=== PATIENT | female | born 1960 | race Caucasian/White ===

== ENCOUNTER → 2021-03-07 | Outpatient (CLI) | payer OTHER ==
[2021-03-07 10:54] VITALS: BP 145/78; PULSE 74; RESP 18; TEMP 98
--- NOTE | 2021-03-07 11:06 | P.GSHP ---
History of Present Illness H&P Date: 03/07/21 Chief Complaint: abnormal breast imaging Susan is a 61 year old white female seen in consultation for Karey Starkey regarding the radiographic abnormality in her left breast. She underwent a bilateral screening mammogram on which revealed a new focal asymmetric area in the upper left breast. Stable right breast. She then underwent an ultrasound of the left breast which revealed at the 2 o'clock position a tolerated and wide 2.8 x 0.5 cm lesion correlating with a mammographic finding. The patient denied any lumps masses or nodules of concern in either breast. She does not complain of any nipple discharge. She has not had any breast biopsy in the past. Caffiene: 1 cup/jailene nicotine: 1 1/2 PPD for 30 years chocolate: occasional Note reviewed from Karey Starkey 01-29-21 Family History: sister: Esophageal cancer Maternal aunt: breast cancer Hormonal History: menarche: 11 [id number] menopause: 49 Surgical history: none Medical History: anxiety/depression hypothyroid high cholesterol Social history: Smoking: One and half packs per day for 30 years Alcohol: Negative drugs: Marijuana daily/ for anxiety - Constitutional Constitutional: Denies chills, Denies fever - EENT Eyes: denies blurred vision, denies pain Ears: deny: decreased hearing, tinnitus Ears, nose, mouth and throat: Denies headache, Denies sore throat - Breasts Breasts: bilateral: as per HPI - Cardiovascular Cardiovascular: Denies chest pain, Denies shortness of breath - Respiratory Respiratory: Denies cough, Denies 7 - Gastrointestinal Gastrointestinal: Denies abdominal pain, Denies diarrhea, Denies nausea, Denies vomiting - Genitourinary (Female) Genitourinary: Denies dysuria, Denies hematuria - Menstruation Menstruation: Reports postmenopausal - Musculoskeletal Musculoskeletal: Reports myalgias - Integumentary Integumentary: Denies pruritus, Denies rash - Neurological Neurological: Denies numbness, Denies weakness - Psychiatric Psychiatric: Reports anxiety, Reports depression - Endocrine Comment: hypothyroid - Hematologic/Lymphatic Comment: none - Allergic/Immunologic Allergic/Immunologic: Reports as per HPI Surgical - Exam BMI 28 - General no distress - Eyes normal ocular movement - Neck trachea midline - Respiratory normal respiratory effort, clear to auscultation - Cardiovascular Rhythm: regular Heart Sounds: normal: S1, S2 - Abdomen Abdomen: soft - Integumentary normal turgor - Neurologic no disoriented, no combative - Musculoskeletal normal gait, normal posture - Psychiatric oriented to time, oriented to person, oriented to place, speech is normal, memory intact Breast Exam: Bra: 36C Inspection: bilateral grade 3 ptosis Palpation: Right breast: Multi-positional exam fibrocystic changes no dominant masses or nodules of concern slightly larger than left breast Right axilla: No adenopathy of concern left breast: Multiple positional exam fibrocystic changes slight fullness upper- outer quadrant no discrete dominant mass or nodule Left axilla: No adenopathy of concern Results Mammogram and ultrasound results reviewed Assessment and Plan Assessment: Impression: Ultrasound abnormality left breast 2 o'clock position Anxiety/depression Hypothyroid High cholesterol Plan: Radiographs to be reviewed with radiology/most likely ultrasound core biopsy of the lesion in the left breast Follow up after ultrasound core biopsy CC: Karey Starkey
== END ==
LOC: WWCWWP 10:36
PROVIDERS: ATTEND Surgery
DX: R92.8 Other abnormal and inconclusive findings on diagnostic imaging of breast (principal); F41.9 Anxiety disorder, unspecified; F32.A Depression, unspecified; E03.9 Hypothyroidism, unspecified; E78.00 Pure hypercholesterolemia, unspecified; F17.210 Nicotine dependence, cigarettes, uncomplicated

== ENCOUNTER → 2021-04-02 | Day surgery (SDC) | payer OTHER ==
[2021-04-02 12:18] VITALS: RESP 16; TEMP 98
[2021-04-02 13:32] VITALS: BP 129/80; PULSE 60
--- NOTE | 2021-04-02 13:44 | USB ---
EXAMINATION TYPE: US biopsy breast VAD LT DATE OF EXAM: 04/02/2021 CLINICAL HISTORY: R92.8 ABN MAMMO. TECHNIQUE: Ultrasound guided core biopsy of left breast. COMPARISON: 01/03/2020, 01/06/2021 FINDINGS: The procedure of ultrasound guided core biopsy was explained to the patient. Benefits, alternatives, and risks were discussed. An informed consent was then obtained. The patient was placed in supine positioning for imaging and for the procedure. The overlying skin was prepped and draped in usual sterile fashion. Lidocaine buffered with bicarbonate was used as anesthetic into the skin and subcutaneous tissue up to area of concern in the left breast. A hedy was made with surgical scalpel. Under ultrasound guidance, a 12-gauge vacuum assisted biopsy gun device was used to obtain 5 core samples. Following this, a biopsy clip was left in lesion. The patient tolerated the procedure well without any immediate complication. The patient was kept in the radiology department for short stay after the procedure and then discharged home in stable condition. IMPRESSION: Successful, uncomplicated ultrasound guided core biopsy of area of concern in the left breast, full pathology results to follow. Pathology Results: Malignant LEFT BREAST, TWO O'CLOCK, ULTRASOUND GUIDED CORE BIOPSY: Invasive well differentiated ductal carcinoma (Grade 1) with associated calcifications. See Surgical Pathology Cancer Case Summary. Recommendation Surgical consult of the left breast. TAMMIE
--- NOTE | 2021-04-02 14:50 | MM ---
Reason for exam: additional evaluation requested from abnormal screening. History: Patient is postmenopausal and is nulliparous. Family history of breast cancer in maternal aunt. Took hormonal contraceptives for 8 years. MG Diagnostic Mammo LT Wo CAD CC and LM view(s) were taken of the left breast. ASSESSMENT: Post procedure mammogram for marker placement RECOMMENDATION: Ultrasound of the left breast in 6 months. PENDING PATHOLOGY RESULTS.
== END | disposition home or self-care (01) ==
LOC: RADUSWWP 11:59
PROVIDERS: ATTEND Surgery
DX: C50.912 Malignant neoplasm of unspecified site of left female breast (principal); Z17.0 Estrogen receptor positive status [ER+]
CPT/HCPCS: 88305; 88342; 88341; 77065; 19083; A4648; J2001

== ENCOUNTER → 2021-04-04 | Outpatient (CLI) | payer OTHER ==
[2021-04-04 15:29] VITALS: BP 146/84; PULSE 68; RESP 18; TEMP 97.7
--- NOTE | 2021-04-04 15:47 | P.PN ---
Subjective Progress Note Date: 04/04/21 Principal diagnosis: lefy breast invasive ductal cancer Susan is a 61 year old white female seen in consultation for Karey Starkey regarding the radiographic abnormality in her left breast. She underwent a bilateral screening mammogram on which revealed a new focal asymmetric area in the upper left breast. Stable right breast. She then underwent an ultrasound of the left breast which revealed at the 2 o'clock position a tolerated and wide 2.8 x 0.5 cm lesion correlating with a mammographic finding. The patient denied any lumps masses or nodules of concern in either breast. She does not complain of any nipple discharge. She has not had any breast biopsy in the past. She had an ultrasound core biopsy on 04-02-21 which was positive for invasive ductal carcinoma grade 1. Receptor status is pending. This is a T1 N0 M0 G1 invasive ductal carcinoma. It is most likely a stage IA or stage IB. Caffiene: 1 cup/day nicotine: 1 1/2 PPD for 30 years chocolate: occasional Note reviewed from Karey Starkey 01-29-21 Family History: sister: Esophageal cancer Maternal aunt: breast cancer Hormonal History: menarche: 11 [id number] menopause: 49 Surgical history: none Medical History: anxiety/depression hypothyroid high cholesterol Social history: Smoking: One and half packs per day for 30 years Alcohol: Negative drugs: Marijuana daily/ for anxiety - Constitutional Constitutional: Denies chills, Denies fever - EENT Eyes: denies blurred vision, denies pain Ears: deny: decreased hearing, tinnitus Ears, nose, mouth and throat: Denies headache, Denies sore throat - Breasts Breasts: bilateral: as per HPI - Cardiovascular Cardiovascular: Denies chest pain, Denies shortness of breath - Respiratory Respiratory: Denies cough, Denies 7 - Gastrointestinal Gastrointestinal: Denies abdominal pain, Denies diarrhea, Denies nausea, Denies vomiting - Genitourinary (Female) Genitourinary: Denies dysuria, Denies hematuria - Menstruation Menstruation: Reports postmenopausal - Musculoskeletal Musculoskeletal: Reports myalgias - Integumentary Integumentary: Denies pruritus, Denies rash - Neurological Neurological: Denies numbness, Denies weakness - Psychiatric Psychiatric: Reports anxiety, Reports depression - Endocrine Comment: hypothyroid - Hematologic/Lymphatic Comment: none - Allergic/Immunologic Allergic/Immunologic: Reports as per HPI Objective - Vital Signs Vital signs: Vital Signs Temp 97.7 F 04/04/21 14:58 Pulse 68 04/04/21 14:58 Resp 18 04/04/21 14:58 BP 146/84 04/04/21 14:58 Pulse Ox 98 04/04/21 14:58 Intake & Output 04/03/21 04/04/21 04/04/21 18:59 06:59 18:59 Weight 67.132 kg - Exam BMI 28 - Constitutional General appearance: Present: cooperative - EENT Eyes: Present: EOMI ENT: Present: hearing grossly normal - Neck Neck: Present: normal ROM - Integumentary Integumentary Comment(s): biopsy site left breast clean without evidence of infection - Musculoskeletal Musculoskeletal: Present: gait normal - Psychiatric Psychiatric: Present: A&O x's 3, appropriate affect, intact judgment & insight Assessment and Plan Assessment: Impression: Stage IA or 1B left breast invasive ductal carcinoma Plan: 1. Presentation of case at tumor board 2. Probable left breast needle localization lumpectomy, possible mastopexy, possible optical plastic tissue transfer, sentinel node injection, sentinel node biopsy possible axillary node dissection 3. Medical clearance from Jorgito grayson and 4. Patient is encouraged to stop smoking prior to the surgery Risks and benefits of the procedure discussed with the patient. Risk of the lumpectomy include but are not limited to bleeding, infection, reaction to the anesthetic. If margins were positive and further resection may be necessary. The scope was sentinel node biopsy include bleeding, infection, reaction to the anesthetic. If the sentinel node were noted to be positive on frozen section are clinically highly suspicious for Node dissection would be performed. Risk also included possibility of lymphedema, numbness to the inner arm, or injury to the thoracodorsal and long thoracic nerves. The patient understands as well as her significant other. Her sister was here with her as well. Surgery will be scheduled in the near future. CC: Radha Starkey
== END ==
LOC: WWCWWP 14:36
PROVIDERS: ATTEND Surgery
DX: C50.912 Malignant neoplasm of unspecified site of left female breast (principal); F41.9 Anxiety disorder, unspecified; F32.A Depression, unspecified; E03.9 Hypothyroidism, unspecified; E78.00 Pure hypercholesterolemia, unspecified; Z79.890 Hormone replacement therapy; Z79.899 Other long term (current) drug therapy

== ENCOUNTER → 2021-05-16 | Outpatient (CLI) | payer OTHER ==
[2021-05-16 13:05] VITALS: BP 128/79; PULSE 65; RESP 18; TEMP 98
--- NOTE | 2021-05-16 13:33 | P.PN ---
Subjective Progress Note Date: 05/16/21 Principal diagnosis: left breast invasive ductal carcinoma; [id number]+Her2-G1; stage I left breast invasive ductal cancer Susan is a 61 year old white female seen in consultation for Karey Starkey regarding a radiographic abnormality in her left breast. She underwent a bilateral screening mammogram on which revealed a new focal asymmetric area in the upper left breast. Stable right breast. She then underwent an ultrasound of the left breast which revealed at the 2 o'clock position a tolerated and wide .82 x 0.5 cm lesion correlating with a mammographic finding. The patient denied any lumps masses or nodules of concern in either breast. She does not complain of any nipple discharge. She has not had any breast biopsy in the past. She had an ultrasound core biopsy on 04-02-21 which was positive for invasive ductal carcinoma grade 1. Receptor status ER+Pr+Her2- This is a T1 N0 M0 G1 invasive ductal carcinoma. It is most likely a stage I. Caffiene: 1 cup/day nicotine: 1 1/2 PPD for 30 years chocolate: occasional Note reviewed from Karey Starkey Family History: sister: Esophageal cancer Maternal aunt: breast cancer Hormonal History: menarche: 11 [id number] menopause: 49 Surgical history: none Medical History: anxiety/depression hypothyroid high cholesterol Social history: Smoking: One and half packs per day for 30 years Alcohol: Negative drugs: Marijuana daily/ for anxiety - Constitutional Constitutional: Denies chills, Denies fever - EENT Eyes: denies blurred vision, denies pain Ears: deny: decreased hearing, tinnitus Ears, nose, mouth and throat: Denies headache, Denies sore throat - Breasts Breasts: bilateral: as per HPI - Cardiovascular Cardiovascular: Denies chest pain, Denies shortness of breath - Respiratory Respiratory: Denies cough - Gastrointestinal Gastrointestinal: Denies abdominal pain, Denies diarrhea, Denies nausea, Denies vomiting - Genitourinary (Female) Genitourinary: Denies dysuria, Denies hematuria - Menstruation Menstruation: Reports postmenopausal - Musculoskeletal Musculoskeletal: Reports myalgias - Integumentary Integumentary: Denies pruritus, Denies rash - Neurological Neurological: Denies numbness, Denies weakness - Psychiatric Psychiatric: Reports anxiety, Reports depression - Endocrine Comment: hypothyroid - Hematologic/Lymphatic Comment: none - Allergic/Immunologic Allergic/Immunologic: Reports as per HPI Objective - Vital Signs Vital signs: Vital Signs Temp 98.0 F 05/16/21 12:42 Pulse 65 05/16/21 12:42 Resp 18 05/16/21 12:42 BP 128/79 05/16/21 12:42 Pulse Ox 99 05/16/21 12:42 Intake & Output 05/15/21 05/16/21 05/16/21 18:59 06:59 18:59 Weight 69.853 kg - Exam BMI 29.1 - Constitutional General appearance: Present: cooperative - EENT Eyes: Present: EOMI ENT: Present: hearing grossly normal - Neck Neck: Present: normal ROM - Respiratory Respiratory: bilateral: CTA - Cardiovascular Rhythm: regular Heart sounds: normal: S1, S2 - Gastrointestinal General gastrointestinal: Present: soft - Musculoskeletal Musculoskeletal: Present: gait normal - Psychiatric Psychiatric: Present: A&O x's 3, appropriate affect, intact judgment & insight - Additional findings Additional findings: Breast examination: Bra: 36C Inspection: Bilateral grade 3 ptosis Palpation: Right breast: Multiple positional exam fibrocystic changes no dominant masses or nodules of concern slightly larger than the left breast Right axilla: No adenopathy of concern Left breast: Multi-positional exam fibrocystic changes slight fullness upper- outer quadrant node discrete dominant masses or nodules of concern Left axilla: No adenopathy of concern Assessment and Plan Assessment: Impression: Assessment and Plan Assessment: Impression: Stage IA left breast invasive ductal carcinoma Plan: 1. Presentation of case at tumor board done on 04-29-21 2. Probable left breast needle localization lumpectomy, via reduction mammoplasty incision, possible onco-plastic tissue transfer, sentinel node injection, sentinel node biopsy possible axillary node dissection 3. Medical clearance from Radha Starkey obtained 4. Patient has stopped smoking and wishes a reduction mammoplasty incision Risks and benefits of the procedure discussed with the patient. Risk of the lumpectomy include but are not limited to bleeding, infection, reaction to the anesthetic. If margins were positive and further resection may be necessary. Possible loss of sensation to the nipple aerolar complex, possible necrosis of nipple aerolar complex. The risk of sentinel node biopsy include bleeding, infection, reaction to the anesthetic were discussed. If the sentinel node were noted to be positive on frozen section or clinically highly suspicious for cancer Node dissection would be performed. Risk also included possibility of lymphedema, numbness to the inner arm, or injury to the thoracodorsal or long thoracic nerves. The patient understands as well as her significant other. Her sister was here with her as well. Surgery will be scheduled in the near future. CC: Radha Starkey Additional CC's: Karey Starkey
== END ==
LOC: WWCWWP 12:31
PROVIDERS: ATTEND Surgery
DX: C50.912 Malignant neoplasm of unspecified site of left female breast (principal); F17.210 Nicotine dependence, cigarettes, uncomplicated; F41.9 Anxiety disorder, unspecified; F32.A Depression, unspecified; E03.9 Hypothyroidism, unspecified; E78.00 Pure hypercholesterolemia, unspecified; Z17.0 Estrogen receptor positive status [ER+]

== ENCOUNTER 2021-05-27 10:53 | Day surgery (SDC) | payer OTHER ==
[2021-05-23 11:56] VITALS: BMI 28.3
[~2021-05-27 10:53] MED LIST: DEXAMETHASONE SOD PHOSPHATE 4 MG/ML 1 ML VIAL IV ONE; FAMOTIDINE 20 MG/2 ML VIAL IV PRN; HEPARIN SODIUM,PORCINE/PF 5,000 UNIT/0.5 ML SYRINGE SQ PRN; HYDROmorphone 0.5 MG/0.5 ML SYRINGE IVP PRN; LACTATED RINGERS 1,000 ML IV SCH; LIDOCAINE 1% (10MG/ML) FOR IV START INTRADERMA PRN; MIDAZOLAM 2 MG/2 ML VIAL IV PRN; ONDANSETRON 4 MG/2 ML VIAL IVP PRN; Pre Op ABX Message 1 EACH MISC MISCELLANE ONE; SCOPOLAMINE 1.5MG/72HR PATCH TRANSDERM ONE
[2021-05-27] MEDS ORDERED: LIDOCAINE 1% INJ 10MG/ML (20 ML MDV) SQ ONE ×3 (12:35→15:32)
--- NOTE | 2021-05-27 13:08 | USB ---
EXAMINATION TYPE: US breast localization LT DATE OF EXAM: 05/27/2021 HISTORY: Left breast cancer PROCEDURE: Maximal barrier technique is utilized. The skin overlying a suitable path to the patient's indwelling mass in the approximately 2:00 position of the left breast was localized using ultrasound guidance. The skin was prepped and Lidocaine used for local anesthesia. A 20-gauge needle was advanced to the level of the mass using ultrasound guidance and a wire deployed. Needle was removed and hemostasis achieved. The patient remained in stable condition. Image obtained verified placement of the wire, 2 view mammogram demonstrating adequate placement of the wire within the mass. IMPRESSION: Successful ultrasound-guided wire localization of this patient's left breast cancer. This procedure performed by the undersigned. Pathology Results: Malignant A. LEFT BREAST, LUMPECTOMY: Invasive well differentiated ductal carcinoma (Grade 1), margins negative for invasive malignancy. Low grade DCIS, focally involving the posterior margin. See Surgical Pathology Cancer Case Summary. B. LEFT AXILLARY SENTINEL NODE, BIOPSY: Lymph node negative for metastasis. CK7 and TONNY immunoperoxidase stains are confirmatory (controls appropriate). C. LEFT AXILLARY CONTENTS: Lymph node negative for metastasis. Recommendation Surgical consult of the left breast. TAMMIE
--- NOTE | 2021-05-27 13:09 | NM ---
EXAMINATION TYPE: NM sentinel node injection DATE OF EXAM: 05/27/2021 COMPARISON: Prior mammogram 04/02/2021 HISTORY: Breast cancer TECHNIQUE AND FINDINGS: The procedure of sentinel lymph node injection was explained to the patient. The benefits, alternatives, and risks were discussed. An informed consent was then obtained. Overlying skin is cleaned with sterile alcohol. Following this, 514 uCi Tc99m Tilmanocept was inject ed in the upper outer aspect of the left nipple intradermally. The patient tolerated the procedure well without any immediate complication. The patient was kept in the radiology department for short stay after the procedure and then taken to surgery for surgical p rocedure what is presumed intraoperative gamma probe will be used for sentinel lymph node detection. IMPRESSION: Left breast radiotracer injection for sentinel node localization as above.
--- NOTE | 2021-05-27 13:29 | MM ---
Reason for exam: additional evaluation requested from abnormal screening. Last mammogram was performed 2 months ago. History: Patient is postmenopausal, has history of breast cancer at age 61, and is nulliparous. Family history of breast cancer in maternal aunt. Malignant US biopsy breast VAD LT of the left breast, April 02, 2021. Took hormonal contraceptives for 8 years. MG Diagnostic Mammo LT Wo CAD CC and LM view(s) were taken of the left breast. Prior study comparison: April 02, 2021, left breast MG diagnostic mammo LT wo CAD. ASSESSMENT: Post procedure mammogram for marker placement RECOMMENDATION: Surgical consult of the left breast. TAMMIE
[2021-05-27] MEDS ORDERED: fentaNYL (PF) 50 MCG/ML 2 ML AMP ONE (13:37)
[2021-05-27] MEDS ORDERED: MIDAZOLAM 2 MG/2 ML VIAL ONE (13:37)
[2021-05-27] MEDS ORDERED: SUCCINYLCHOLINE CHLORIDE 100 MG/5 ML SYR IV ONE (13:37)
[2021-05-27] MEDS ORDERED: LIDOCAINE 1% INJ 10MG/ML (20 ML MDV) ONE (13:37)
[2021-05-27] MEDS ORDERED: PROPOFOL 10 MG/ML 20 ML VIAL IV ONE (13:37)
[2021-05-27] MEDS ORDERED: SODIUM CHLORIDE 0.9% 100 ML with ceFAZolin 2,000 MG IV ONE ×2 (14:03)
--- NOTE | 2021-05-27 15:31 | P.OP ---
Date of Procedure: 05/27/21 Preoperative Diagnosis: Left breast stage IA invasive ductal carcinoma Postoperative Diagnosis: Same Procedure(s) Performed: Left breast needle localization lumpectomy, left breast sentinel node biopsy, left breast onco-plastic tissue transfer; 112 cm Anesthesia: DC Surgeon: Letitia Bright Estimated Blood Loss (ml): 15 IV fluids (ml): 400 Pathology: other (Left axillary tissue/lymph node, left breast tissue) Condition: stable Disposition: same day Indications for Procedure: Stage IA invasive ductal carcinoma left breast Operative Findings: Fibrofatty breast tissue Description of Procedure: Susan is a 61-year-old white female who was diagnosed with invasive ductal left breast carcinoma. She underwent went injection of radioactive substance in the left periareolar area and localization of the tumor in the left breast. She was brought down to the operative suite. Following induction of anesthesia the neoprobe was used to interrogate the axilla. It did appear that there was some radioactivity in the axilla and therefore no methylene blue was injected. Following induction of anesthesia the left breast and axilla were prepped and draped in a sterile fashion. The neoprobe noted minimal radioactivity in the axilla however an incision was made at its greatest activity. Dissection was performed into the axillary tissue. A palpable lymph node was identified. This was not radioactive. Upon interrogating the axilla furtherspecific area of radioactivity was identified. No other palpable lymph nodes were identified. Further interrogation with both the neoprobe and palpation did not reveal any other lymph nodes of concern. The tissue which had initially been identified was removed and the enlarged node which was identified was sent as sentinel lymph node. The area of the breast was then approached. An incision was made and carried down to the shaft of the needle. Surrounding tissue was excised. The specimen was painted for orientation. Titanium clips were placed. The specimen was 11 cm x 7 cm. The superior pillar was 7 x 2 cm in size, and an inferior pillar 7 x 3 cm in size was formed. Radiograph of the specimen revealed the area of concern had been removed. Posterior dissection was onto the chest wall. The area was marked using titanium clips. Total tissue mobilized was 112 cm. The superior and inferior pillars were brought together with 3-0 Vicryl suture. This was done after the wound had been well irrigated and Surgicel in powder form had been placed. The subcutaneous tissues were closed using 3-0 Vicryl suture. This was followed by closure of the skin using 4-0 Monocryl. The patient tolerated the procedure in stable condition. All instrument and sponge counts were correct at the end of the case. Procedure: Total tissue transfer 112 cm Localization left lumpectomy [place] node biopsy
--- NOTE | 2021-05-27 15:33 | P.DS ---
Providers Attending physician: Letitia Bright Primary care physician: Clayton Momin Plan - Discharge Summary Discharge Rx Participant: No New Discharge Prescriptions: No Action ALPRAZolam [Xanax] 0.5 mg PO DAILY PRN PRN Reason: Anxiety Ascorbic Acid [Vitamin C] 1,000 mg PO DAILY busPIRone HCL 15 mg PO BID Levothyroxine Sodium [Synthroid] 75 mcg PO DAILY Escitalopram [Lexapro] 20 mg PO DAILY Atorvastatin [Lipitor] 20 mg PO DAILY Cholecalciferol [Vitamin D3 (125 Mcg = 5000 Iu)] 125 mcg PO DAILY Discharge Medication List ALPRAZolam [Xanax] 0.5 mg PO DAILY PRN 03/07/21 [History] Atorvastatin [Lipitor] 20 mg PO DAILY 03/07/21 [History] Escitalopram [Lexapro] 20 mg PO DAILY 03/07/21 [History] Levothyroxine Sodium [Synthroid] 75 mcg PO DAILY 03/07/21 [History] busPIRone HCL 15 mg PO BID 03/07/21 [History] Ascorbic Acid [Vitamin C] 1,000 mg PO DAILY 05/16/21 [History] Cholecalciferol [Vitamin D3 (125 Mcg = 5000 Iu)] 125 mcg PO DAILY 05/16/21 [History] Follow up Appointment(s)/Referral(s): Letitia Bright MD [STAFF PHYSICIAN] - 06/05/21 3:40 pm Activity/Diet/Wound Care/Special Instructions: Do not drive for 24 hours after discharge Do not drive if taking narcotic pain medication Wear bra at all times may shower after 48 hours Discharge Disposition: HOME SELF-CARE
[2021-05-27 15:52] VITALS: RESP 16; TEMP 97.7
[2021-05-27] MEDS ORDERED: LACTATED RINGERS 1,000 ML IV ONE (15:56)
--- NOTE | 2021-05-27 16:06 | MM ---
Surgical specimen mammogram HISTORY: Status post lumpectomy Surgical specimen contains the clip, the wire, the mass. Single view obtained. IMPRESSION: Successful wire localization for lumpectomy Pathology Results: Malignant A. LEFT BREAST, LUMPECTOMY: Invasive well differentiated ductal carcinoma (Grade 1), margins negative for invasive malignancy. Low grade DCIS, focally involving the posterior margin. See Surgical Pathology Cancer Case Summary. B. LEFT AXILLARY SENTINEL NODE, BIOPSY: Lymph node negative for metastasis. CK7 and TONNY immunoperoxidase stains are confirmatory (controls appropriate). C. LEFT AXILLARY CONTENTS: Lymph node negative for metastasis. Recommendation Surgical consult of the left breast. CHASD
[2021-05-27 16:45] VITALS: BP 148/64; PULSE 62
== END 2021-05-27 17:00 | disposition home or self-care (01) ==
LOC: OR 10:53
PROVIDERS: ATTEND Surgery
DX: C50.912 Malignant neoplasm of unspecified site of left female breast (principal)
CPT/HCPCS: 19302; 88342; 88307; 88341; 77065; 76098; 19285; 38792; A9520; J2250; J1100; J2405; J0690; J2001; J3010; J0330; J2704; J1644

== ENCOUNTER → 2021-06-12 | Outpatient (CLI) | payer OTHER ==
[2021-06-12 12:28] VITALS: BP 113/73; PULSE 57; RESP 17; TEMP 98.3
--- NOTE | 2021-06-12 12:53 | P.PN ---
Progress Note - Text Progress Note Date: 06/12/21 Susan is a 61 year old white female status post left breast lumpectomy and SNB on 05-27-21. Tumor size 1 cm. Posterior margin focally positive for DCIS. Sentinal node negative. Dissection was posteriorly to the pectoralis muscle and therefore further resection is not recommended. The patient is doing well postoperatively. Physical Exam: Lungs: Clear Heart: Regular rate and rhythm Incision breast and axilla cleaned and dried Plan: Primary with medical oncology Appointment with radiation oncology All appear in 4 months CC: Radha Starkey
== END ==
LOC: WWCWWP 11:44
PROVIDERS: ATTEND Surgery
DX: Z48.3 Aftercare following surgery for neoplasm (principal)

== ENCOUNTER → 2021-07-17 | Outpatient (CLI) | payer OTHER ==
[2021-07-17 10:52] VITALS: BP 160/72; PULSE 61; RESP 16; TEMP 98
--- NOTE | 2021-07-17 11:34 | P.PN ---
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 She underwent a bilateral screening mammogram on which revealed a new focal asymmetric area in the upper left breast. Stable right breast. She then underwent an ultrasound of the left breast which revealed at the 2 o'clock position a tolerated and wide 2.8 x 0.5 cm lesion correlating with a mammographic finding. The patient denied any lumps masses or nodules of concern in either breast. She does not complain of any nipple discharge. She has not had any breast biopsy in the past. The patient on 05-27-21 underwent a lumpectomy and SNB. 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 [place] lymph node negative for metastases metastatic disease. Tumor size was 10 mm. The patient had an appointment with her family MD 2 weeks ago and she told her her breast was swollen and red, as was after she had already started radiation therapy. She was given a prescription for cephelaxin and the patient then saw Dr. Buchanan and was told she had edema and to continue with AB. She was told to come here. Her breast now has not changed. It is not hot, it is not tender at this time. She saw Dr. Hurt from medical oncology today who did not feel the patient had any infection. Going to be given in antiestrogen medication, she does not need any chemotherapy. 06-23-21 note from Dinesh Velázquez reviewed; she is being referred to Dr. Buchanan for radiation 06-27-[address] Buchanan Caffiene: 1 cup/day nicotine: 1 1/2 PPD for 30 years chocolate: occasional Note reviewed from Karey Starkey 01-29-21 Family History: sister: Esophageal cancer Maternal aunt: breast cancer Hormonal History: menarche: 11 [id number] menopause: 49 Surgical history: none Medical History: anxiety/depression hypothyroid high cholesterol Social history: Smoking: One and half packs per day for 30 years Alcohol: Negative drugs: Marijuana daily/ for anxiety - Constitutional Constitutional: Denies chills, Denies fever - EENT Eyes: denies blurred vision, denies pain Ears: deny: decreased hearing, tinnitus Ears, nose, mouth and throat: Denies headache, Denies sore throat - Breasts Breasts: bilateral: as per HPI - Cardiovascular Cardiovascular: Denies chest pain, Denies shortness of breath - Respiratory Respiratory: Denies cough - Gastrointestinal Gastrointestinal: Denies abdominal pain, Denies diarrhea, Denies nausea, Denies vomiting - Genitourinary (Female) Genitourinary: Denies dysuria, Denies hematuria - Menstruation Menstruation: Reports postmenopausal - Musculoskeletal Musculoskeletal: Reports myalgias - Integumentary Integumentary: Denies pruritus, Denies rash - Neurological Neurological: Denies numbness, Denies weakness - Psychiatric Psychiatric: Reports anxiety, Reports depression - Endocrine Comment: hypothyroid - Hematologic/Lymphatic Comment: none - Allergic/Immunologic Allergic/Immunologic: Reports as per HPI Surgical - Exam BMI 28 - General no distress - Eyes normal ocular movement - Neck trachea midline - Respiratory normal respiratory effort, clear to auscultation - Cardiovascular Rhythm: regular Heart Sounds: normal: S1, S2 - Abdomen Abdomen: soft - Integumentary normal turgor - Neurologic no disoriented, no combative - Musculoskeletal normal gait, normal posture - Psychiatric oriented to time, oriented to person, oriented to place, speech is normal, memory intact Objective - Vital Signs Vital signs: Vital Signs Temp 98.0 F 07/17/21 10:48 Pulse 61 07/17/21 10:48 Resp 16 07/17/21 10:48 BP 160/72 07/17/21 10:48 Pulse Ox 96 07/17/21 10:48 Intake & Output 07/16/21 07/17/21 07/17/21 18:59 06:59 18:59 Weight 71.668 kg - Exam BMI 30.9 - Constitutional General appearance: Present: cooperative - EENT Eyes: Present: EOMI ENT: Present: hearing grossly normal - Neck Neck: Present: normal ROM - Respiratory Respiratory: bilateral: CTA - Cardiovascular Rhythm: regular Heart sounds: normal: S1, S2 - Integumentary Integumentary: Present: normal turgor - Musculoskeletal Musculoskeletal: Present: gait normal - Psychiatric Psychiatric: Present: A&O x's 3, appropriate affect, intact judgment & insight - Additional findings Additional findings: Breast Exam: BRA: 36C Inspection: left breast mild erythema, bilateral fungal infection under each breast Palpation: right breast: Positional exam fibrocystic changes no dominant masses or nodules of concern Right axilla: No adenopathy of concern Left breast: Mildly swollen, mild erythema which appears to be related to postoperative changes, no evidence of infection at this time, the breast is not hot or warm Left axilla: Incision clean and dry well-healed no adenopathy of concern Assessment and Plan Assessment: Impression: anxiety/depression hypothyroid high cholesterol Stage I a left breast invasive ductal carcinoma no evidence of infection today Patient is started radiation and is in her second week of radiation therapy Plan: Complete radiation therapy Antihormone therapy after completion of radiation therapy Repeat left breast mammogram 6 months after radiation therapy completed Follow-up here in 4 months Ultrasound will be performed of the left breast today to determine if there is seroma present ( patient has delined the ultrasound after further discussion) CC: Radha Starkey
== END ==
LOC: WWCWWP 10:15
PROVIDERS: ATTEND Surgery
DX: C50.912 Malignant neoplasm of unspecified site of left female breast (principal); F41.9 Anxiety disorder, unspecified; F32.A Depression, unspecified; E03.9 Hypothyroidism, unspecified; E78.00 Pure hypercholesterolemia, unspecified; F17.210 Nicotine dependence, cigarettes, uncomplicated

== ENCOUNTER → 2021-07-17 | Outpatient (CLI) | payer OTHER | END | disposition home or self-care (01) | LOC: RADUSWWP 11:27 | PROVIDERS: ATTEND Surgery | DX: Z53.9 Procedure and treatment not carried out, unspecified reason (principal) ==

== ENCOUNTER → 2021-08-14 | Outpatient (CLI) | payer OTHER ==
--- NOTE | 2021-08-14 22:20 | BD ---
EXAMINATION TYPE: Axial Bone Density DATE OF EXAM: 08/14/2021 COMPARISON: NONE CLINICAL HISTORY: 61 years year old Female. ICD-10 CODE: N95.1 POST MENOPAUSAL SYMPTOMS Height: 60 Weight: 158.5 FRAX RISK QUESTIONS: Alcohol (3 or more units per day): NO Family History (Parent hip fracture): MOTHER Glucocorticoids (More than 3mos): NO History of Fracture in Adulthood: NO Secondary Osteoporosis: 1. Type 1 Diabetes: NO 2. Hyperthyroidism: NO 3. Menopause before 45: NO 4. Malnutrition: NO 5. Chronic liver disease: NO Rheumatoid Arthritis: NO Current Tobacco Use: NO RISK FACTORS HISTORY OF: Hip Fracture (Right/Left): NO Spine Fracture: NO History of Wrist Fracture: NO Surgery to Spine/Hip(right/left)/Wrist (right/left): NO Family History of Osteoporosis: MOTHER, SISTER Active: NO Diet low in dairy products/other sources of calcium: NO Postmenopausal woman: YES If Premenopausal, do you have irregular periods: NO Take estrogen and/or progesterone medications: NO Lost more than 2 inches in height since high school: NO Frequent falls: NO Poor Health: NO Hyperparathyroidism: NO Adrenal Insufficiency: NO MEDICATIONS: Prednisone or other steroids: NO Thyroid Medications: YES SYNTHROID How Long: PAST 4 YEAR Osteoporosis Medications: NO Additional Medications: LIPITOR, LEXAPRO, BUSPIRONE, SYNTHROID, XANAX, VIT D Additional History: BREAST CA. 2020 WITH RADIATION EXAM MEASUREMENTS: Bone mineral densitometry was performed using the [employer] System. Bone mineral density as measured about the Lumbar spine is: ----- L1-L4(G/cm2): 0.948 T Score Values are as follows: ----- L1: -2.1 ----- L2: -2.2 ----- L3: -2.6 ----- L4: -1.2 ----- L1-L4: -1.9 BASELINE STUDY Bone mineral density about the R hip (g/cm2): 0.750 Bone mineral density about the L hip (g/cm2): 0.692 T Score values are as follows: -----R Neck: -2.1 -----L Neck: -2.5 -----R Total: -1.9 -----L Total: -2.1 BASELINE STUDY FRAX%s: The graph provided illustrates a 11.9% chance for a major osteoporotic fx and a 2.3% chance f or the hips probability for fx in 10 years time. IMPRESSION: Osteopenia (T Score between -2.5 and -1). There is slightly increased risk of fracture and the patient may be considered for treatment. Re-Screen 2-5 years. NOTE: T-SCORE=SD OF THE YOUNG ADULT MEAN.
== END | disposition home or self-care (01) ==
LOC: RADBDWWP 16:12
PROVIDERS: ATTEND Internal Medicine Hematology & Oncology
DX: M85.89 Other specified disorders of bone density and structure, multiple sites (principal); Z78.0 Asymptomatic menopausal state
CPT/HCPCS: 77080

== ENCOUNTER → 2021-11-13 | Outpatient (CLI) | payer OTHER ==
[2021-11-13 12:57] VITALS: BP 146/81; PULSE 58; RESP 16; TEMP 98.2
--- NOTE | 2021-11-13 13:22 | P.PN ---
Subjective Progress Note Date: 11/13/21 Principal diagnosis: left breast stage IA invasive ductal cancer [id number]+Her2-G1 low grade DCIS + posterior margin Susan is a 61 year old white female status post lumpectomy and SNB on 05-27-21. Her posterior margin was focally + for DCIS, however the dissection was to the chest wall. She had radiation therapy. She is taking Letrazole. Is not complaining of any new lumps masses or nodules of concern in either breast Note from radiation oncology reviewed 09-04-21 Caffeine: One cup per day Nicotine: SMOKING approximately 4 months ago, used to smoke 1-1/2 packs per day for 30 years Chocolate: Occasional Family history: Sr.: Esophageal cancer Maternal aunt: Breast cancer Hormonal history: Menarche: 11 G-tube P0 Ab2 Menopause: 49 Surgical history: Lumpectomy and sentinel node biopsy left breast Medical history: Anxiety/depression Hypothyroid High cholesterol Social history: Smoking one and a half packs per day for 30 years but stopped 4 months ago Alcohol: Negative Drugs: Marijuana daily for anxiety Review of systems: Constitutional: Negative HEENT: Negative Breasts: As per HPI Cardiovascular: Negative Breast Lamar: Former smoker GI: Negative : Negative Musculoskeletal: Myalgias Integument: Negative Neurologic: Negative Psychiatric: Reports anxiety and depression at times Endocrine: Hypothyroid Hematologic: Negative Objective - Vital Signs Vital signs: Vital Signs Temp 98.2 F 11/13/21 12:54 Pulse 58 L 11/13/21 12:54 Resp 16 11/13/21 12:54 BP 146/81 11/13/21 12:54 Pulse Ox 97 11/13/21 12:54 FiO2 Intake & Output 11/12/21 11/13/21 11/13/21 18:59 06:59 18:59 Weight 71.668 kg - Exam BMI: 29.9 - Constitutional General appearance: Present: cooperative - EENT Eyes: Present: EOMI ENT: Present: hearing grossly normal - Neck Neck: Present: normal ROM - Respiratory Respiratory: bilateral: CTA - Cardiovascular Rhythm: regular Heart sounds: normal: S1, S2 - Gastrointestinal General gastrointestinal: Present: soft - Integumentary Integumentary Comment(s): left breast with some swelling and thickening of the skin believed to be postradiation changes no evidence of infection - Musculoskeletal Musculoskeletal: Present: gait normal - Psychiatric Psychiatric: Present: A&O x's 3, appropriate affect, intact judgment & insight - Additional findings Additional findings: Breast examination: Bra: 40D Inspection: Left breast appears to remain swollen with no evidence of infection Palpation: Right breast: Multiple positional exam fibrocystic changes no dominant masses or nodules of concern Right axilla: No adenopathy of concern Left breast: appears to have postoperative and postradiation changes with some fullness in the upper outer quadrant may be consistent with a seroma Left axilla: No adenopathy of concern Assessment and Plan Assessment: Impression: Patient status post left breast lumpectomy radiation therapy for a stage IA invasive ductal carcinoma, no evidence of recurrent disease however there is some swelling in the upper quadrant aspect of the breast Plan: I have talked to the patient about getting an ultrasound of the area for possible seroma exist versus an attempted needle aspiration first and she would like to needle aspiration, she understands that we may not obtain fluid and we will get an ultrasound in that case Continue letrazole Follow-up with radiation oncology Follow-up here in two weeks After informed consent the area of concern in the left breast is prepped using Betadine. An 18-gauge needle on a 60 mL syringe was utilized to aspirate approximately 220 cc of straw-colored fluid. There was no evidence of infection. The patient tolerated the procedure without difficulty with resolution of the seroma. The patient follow up in 2 weeks' time CC: Dr. Momin
== END ==
LOC: WWCWWP 12:35
PROVIDERS: ATTEND Surgery
DX: Z08 Encounter for follow-up examination after completed treatment for malignant neoplasm (principal); Z85.3 Personal history of malignant neoplasm of breast; Z98.890 Other specified postprocedural states; Z87.891 Personal history of nicotine dependence; F41.9 Anxiety disorder, unspecified; F32.A Depression, unspecified; E03.9 Hypothyroidism, unspecified; E78.00 Pure hypercholesterolemia, unspecified

== ENCOUNTER → 2021-12-18 | Outpatient (CLI) | payer OTHER ==
[2021-12-18 13:14] VITALS: BP 158/86; PULSE 59; RESP 16; TEMP 97.7
--- NOTE | 2021-12-18 13:33 | P.PN ---
Progress Note - Text Progress Note Date: 12/18/21 Susan is status post left breast lumpectomy and SNB on 05-27-21 and radiation therapy completed in August 2021 for a stage IA invasive ductal carcinoma, no evidence of recurrent disease however there is some swelling in the upper quadrant aspect of the breast. The patient since her last aspiration is complaining of some tenderness in the breast as well as in the area of the axilla. She is not complaining of any fever or chills. Lungs: Clear Heart: Regular rate and rhythm Breast mild fullness in the lateral aspect We have discussed that this is most likely persistent seroma and the patient would like aspiration be performed After informed consent the area was prepped using alcohol. An 18-gauge needle was inserted into the area of concern and up proximally 55 mL of straw-colored fluid was obtained The fluid is sent for cultures The patient will be continued on antibiotics until the cultures come back The patient will follow up in 1 week Impression: Persistent discomfort of the left breast with recurrent seroma Plan: Aspiration of seroma was performed today The patient will be continued on antibiotic Patient to follow up in 1 week Patient will use Motrin as needed Patient is wearing brought all times CC: Dr. Momin
== END ==
LOC: WWCWWP 12:36
PROVIDERS: ATTEND Surgery
DX: L76.34 Postprocedural seroma of skin and subcutaneous tissue following other procedure (principal); Z85.3 Personal history of malignant neoplasm of breast
CPT/HCPCS: 87070; 87075; 87205

== ENCOUNTER → 2021-12-26 | Outpatient (CLI) | payer OTHER ==
[2021-12-26 12:26] VITALS: BP 128/77; PULSE 59; RESP 17; TEMP 98.8
--- NOTE | 2021-12-26 12:48 | P.PN ---
Subjective Progress Note Date: 12/26/21 Principal diagnosis: left breast stage IA invasive ductal cancer left breast [id number]+LA+Her2-G1 low grade DCIS + posterior margin Susan is a 61 year old white female status post lumpectomy and SNB on 05-27-21. Her posterior margin was focally + for DCIS, however the dissection was to the chest wall. She had radiation therapy. She is taking Letrazole. She developed a seroma on the left side which has been aspieated several times. She is here for evaluation of this area. This was most recently aspirated on 12-18-21 for 55 CCof straw colored fluid. Is not complaining of any new lumps masses or nodules of concern in either breast. She is not complaining of any fluid accumulation that is of concern to her at this time. Erythema which was present in the past has resolved. Caffeine: One cup per day Nicotine: SMOKING approximately 3 cigarettes/day, used to smoke 1-1/2 packs per day for 30 years Chocolate: Occasional Family history: Sister: Esophageal cancer Maternal aunt: Breast cancer Hormonal history: Menarche: 11 G-tube P0 Ab2 Menopause: 49 Surgical history: Lumpectomy and sentinel node biopsy left breast Medical history: Anxiety/depression Hypothyroid High cholesterol Social history: Smoking one and a half packs per day for 30 years but stopped 4 months ago Alcohol: Negative Drugs: Marijuana daily for anxiety Review of systems: Constitutional: Negative HEENT: Negative Breasts: As per HPI Cardiovascular: Negative Breast Lamar: Former smoker GI: Negative : Negative Musculoskeletal: Myalgias Integument: Negative Neurologic: Negative Psychiatric: Reports anxiety and depression at times Endocrine: Hypothyroid Hematologic: Negative Objective - Vital Signs Vital signs: Vital Signs Temp 98.8 F 12/26/21 12:23 Pulse 59 L 12/26/21 12:23 Resp 17 12/26/21 12:23 BP 128/77 12/26/21 12:23 Pulse Ox 98 12/26/21 12:23 FiO2 Intake & Output 12/25/21 12/26/21 12/26/21 18:59 06:59 18:59 Weight 70.76 kg - Constitutional General appearance: Present: cooperative - EENT Eyes: Present: EOMI ENT: Present: hearing grossly normal - Neck Neck: Present: normal ROM - Respiratory Respiratory: bilateral: CTA - Cardiovascular Heart sounds: normal: S1, S2 - Musculoskeletal Musculoskeletal: Present: gait normal - Psychiatric Psychiatric: Present: A&O x's 3, appropriate affect, intact judgment & insight - Additional findings Additional findings: Breast Exam: left breast: Decreased erythema, no evidence of recurrent seroma at this time Incision axilla and breast clean and dry and well healed Postradiation and surgical changes noted Assessment and Plan Assessment: Impression: stage IA left breast invasive ductal cancer patient on letrazole no seroma at this time left breast Plan: bilateral mammogram in March 2022. follow up here after mammogram continue letrazole Follow-up medical oncology Follow-up radiation oncology Follow-up here sooner if any questions or concerns CC: Dr. Momin
== END ==
LOC: WWCWWP 11:38
PROVIDERS: ATTEND Surgery
DX: C50.912 Malignant neoplasm of unspecified site of left female breast (principal); F17.210 Nicotine dependence, cigarettes, uncomplicated; F32.A Depression, unspecified; Z79.811 Long term (current) use of aromatase inhibitors; F41.9 Anxiety disorder, unspecified; E78.00 Pure hypercholesterolemia, unspecified; E03.9 Hypothyroidism, unspecified

== ENCOUNTER → 2022-03-10 | Outpatient (CLI) | payer OTHER | END | disposition home or self-care (01) | LOC: WWCWWP 11:51 | PROVIDERS: ATTEND Surgery | DX: Z53.9 Procedure and treatment not carried out, unspecified reason (principal) ==

== ENCOUNTER → 2022-04-03 | Outpatient (CLI) | payer OTHER ==
--- NOTE | 2022-04-03 13:18 | MM ---
Reason for Exam: Additional evaluation requested from prior study. Patient History: Menarche at age 12. Patient has no children. Postmenopausal. Breast cancer, left, age 61. Patient used Hormonal Contraceptives for 8 years. 05/27/2021, Lumpectomy on the Left side. Malignant Core Biopsy. 04/02/2021, Malignant Core Biopsy on the left side. 2021, Radiation Therapy on the left side. Maternal aunt had breast cancer. Prior Study Comparison: 04/02/2021 Left Diagnostic Mammogram, [facility]. 05/27/2021 Left Diagnostic Mammogram, [facility]. Tissue Density: There are scattered fibroglandular densities. Findings: Analyzed By CAD. There are few scattered benign-appearing round calcifications throughout the right breast redemonstrated. Tiny round 3 mm mass in the right breast outer aspect middle depth is redemonstrated. There are benign linear anatomic ossification throughout the left breast. Interval treatment to the left breast with new surgical clips. There is new oval circumscribed 7.2 cm lesion at the area of treatment in the upper-outer quadrant left breast that warrant further workup. Overall Assessment: Incomplete: need additional imaging evaluation, BI-RAD 0 Management: Diagnostic Breast Ultrasound of the left breast. Targeted ultrasound left breast . Electronically signed and approved by: Osmar Hayward M.D.
--- NOTE | 2022-04-03 13:58 | USB ---
Reason for Exam: Additional evaluation requested from abnormal screening. Patient History: Menarche at age 12. Patient has no children. Postmenopausal. Breast cancer, left, age 61. Patient used Hormonal Contraceptives for 8 years. 05/27/2021, Lumpectomy on the Left side. Malignant Core Biopsy. 04/02/2021, Malignant Core Biopsy on the left side. 2021, Radiation Therapy on the left side. Maternal aunt had breast cancer. Technique: Method: Targeted. Prior Study Comparison: 04/02/2021 Left Diagnostic Mammogram, [facility]. 05/27/2021 Left Diagnostic Mammogram, [facility]. Findings: The upper outer quadrant of the left breast, the axilla of the left breast and the retroareolar of the left breast were scanned. Targeted ultrasound shows thin-walled fluid collection measuring 5.5 x 3.6 x 4.9 cm with some areas of slight wall thickening. No significant vascularity. Finding is nonspecific. Postsurgical seroma is suspected. Overall Assessment: Probably benign, BI-RAD 3 Management: Diagnostic Mammogram of both breasts in 1 year. Diagnostic Breast Ultrasound of the left breast in 6 months. Consider ultrasound-guided aspiration if concern for other fluid collection beside seroma. Consider ultrasound-guided aspiration if area is painful. Electronically signed and approved by: Osmar Hayward M.D.
--- NOTE | 2022-04-03 14:34 | P.PN ---
Subjective Progress Note Date: 04/03/22 left breast stage IA invasive ductal cancer left breast [id number]+Her2-G1 low grade DCIS + posterior margin Susan is a 62 year old white female status post lumpectomy and SNB on 05-27-21. Her posterior margin was focally + for DCIS, however the dissection was to the chest wall. She had radiation therapy. She is taking Letrazole. She developed a seroma on the left side which has been aspieated several times. She is here for evaluation of this area. This was most recently aspirated on 12-18-21 for 55 CCof straw colored fluid. Is not complaining of any new lumps masses or nodules of concern in either breast. She is not complaining of any fluid accumulation that is of concern to her at this time. Erythema which was present in the past has resolved. Bilateral mammogram on 04-03-22; ultrasound of the left breast recommended. Ultrasound left breast 04-03-22 BIRAD 3 7.2 cm oval lesion at the area of treatment. She is not complaining of any new lumps masses or nodules of concern in either breast. She finished radiation therapy in August 2021. She is taking letrazole. She is not complaining regarding this, she did not have any chemotherapy. Caffeine: One cup per day Nicotine: SMOKING approximately 3 cigarettes/day, used to smoke 1-1/2 packs per day for 30 years Chocolate: Occasional Family history: Sister: Esophageal cancer Maternal aunt: Breast cancer Hormonal history: Menarche: 11 G-tube P0 Ab2 Menopause: 49 Surgical history: Lumpectomy and sentinel node biopsy left breast Medical history: Anxiety/depression Hypothyroid High cholesterol Social history: Smoking one and a half packs per day for 30 years but stopped 4 months ago Alcohol: Negative Drugs: Marijuana daily for anxiety Review of systems: Constitutional: Negative HEENT: Negative Breasts: As per HPI Cardiovascular: Negative Breast Lamar: Former smoker GI: Negative : Negative Musculoskeletal: Myalgias Integument: Negative Neurologic: Negative Psychiatric: Reports anxiety and depression at times Endocrine: Hypothyroid Hematologic: Negative Objective - Constitutional General appearance: Present: cooperative - EENT Eyes: Present: EOMI ENT: Present: hearing grossly normal - Neck Neck: Present: normal ROM - Respiratory Respiratory: bilateral: CTA - Cardiovascular Heart sounds: normal: S1, S2 - Gastrointestinal General gastrointestinal: Present: soft - Integumentary Integumentary Comment(s): post radiation changes left breast Integumentary: Present: normal turgor - Musculoskeletal Musculoskeletal: Present: gait normal - Psychiatric Psychiatric: Present: A&O x's 3, appropriate affect, intact judgment & insight - Additional findings Additional findings: Breast Exam: XL sports bra Inspection: Right breast grade 2/3 ptosis, left breast fullness in the upper outer quadrant area consistent with most likely seroma Palpation: Right breast: Multiple positional exam fibrocystic changes no dominant masses or nodules of concern Right axilla: No adenopathy of concern Left breast: Multi-positional exam post operative and postradiation changes with probable seroma in the upper outer quadrant of the left breast Left axilla: No adenopathy of concern Assessment and Plan Assessment: Impression/plan: Patient status post left breast lumpectomy and radiation therapy for a stage IA invasive ductal left breast cancer, no evidence of recurrent disease Bilateral mammogram [id number] as well as left breast ultrasound BIRADS 3 repeat ultrasound left breast in 6 months Recommend attempted aspiration of probable seroma left breast upper outer quadrant Patient understands risks and benefits and wishes to proceed CC: Merrill
== END | disposition home or self-care (01) ==
LOC: RADMAMWWP 12:35
PROVIDERS: ATTEND Surgery
DX: D05.12 Intraductal carcinoma in situ of left breast (principal); E03.9 Hypothyroidism, unspecified; F17.210 Nicotine dependence, cigarettes, uncomplicated; E78.00 Pure hypercholesterolemia, unspecified; N64.89 Other specified disorders of breast; Z78.0 Asymptomatic menopausal state; Z85.3 Personal history of malignant neoplasm of breast; Z92.3 Personal history of irradiation; Z80.3 Family history of malignant neoplasm of breast
CPT/HCPCS: 77066; 76642; G0279; 77062

== ENCOUNTER → 2022-04-03 | Outpatient (CLI) | payer OTHER ==
[2022-04-03 14:09] VITALS: BP 153/83; PULSE 87; RESP 16; TEMP 97.9
== END ==
LOC: WWCWWP 12:33
PROVIDERS: ATTEND Surgery
DX: Z90.12 Acquired absence of left breast and nipple (principal); Z92.3 Personal history of irradiation; E03.9 Hypothyroidism, unspecified; E78.5 Hyperlipidemia, unspecified; Z80.3 Family history of malignant neoplasm of breast; Z80.0 Family history of malignant neoplasm of digestive organs

== ENCOUNTER → 2022-09-30 | Outpatient (CLI) | payer OTHER ==
--- NOTE | 2022-09-30 13:38 | CTL ---
EXAMINATION TYPE: CT Low Dose Lung DATE OF EXAM ORDERED: 09/30/2022 COMPARISON: None HISTORY: . Low Dose CT Lung Screening CT DLP: 84.[address] CTDI: 2.4 mGy IV CONTRAST USED: None. SCREENING VISIT: First visit COMPARISON: None. TECHNIQUE: Low dose computed tomography scan was performed through the chest at 1 millimeter thick se ctions and reconstructed images in the coronal plane at [address] DIAGNOSTIC QUALITY: Satisfactory FINDINGS: LUNG NODULES: Not presentLeft lung: no nodules identified.Right lung: no nodules identified. LUNGS: COPD: Severity: Mild/moderate upper lobe emphysematous change Fibrosis: Severity: Mild subpleural fibrosis left upper lobe. Lymph nodes: None Other findings: None RIGHT PLEURAL SPACE: Effusion: None Calcification: None Thickening: None Pneumothorax: None LEFT PLEURAL SPACE: Effusion: None Calcification: None Thickening: None Pneumothorax: None HEART: Heart Size: Mildly enlarged Coronary calcification: Mild Pericardial effusion: None OTHER FINDINGS: Postoperative changes left breast with residual seroma. Upper abdomen: No significant abnormality Bony thorax: Degenerative changes Supraclavicular region: No significant abnormalityOther: No significant abnormalityI IMPRESSION: No significant pulmonary nodularity. FOLLOW UP CT CHEST RECOMMENDATION: Follow-up screening in one year smoking cessation recommended. CT LUNG RAD: LUNG RAD CATEGORY 1 negative
== END | disposition home or self-care (01) ==
LOC: RADCTMAIN 12:54
PROVIDERS: ATTEND Internal Medicine Hematology & Oncology
DX: Z12.2 Encounter for screening for malignant neoplasm of respiratory organs (principal); J43.9 Emphysema, unspecified; J84.10 Pulmonary fibrosis, unspecified; F17.210 Nicotine dependence, cigarettes, uncomplicated
CPT/HCPCS: 71271

== ENCOUNTER → 2022-09-30 | Outpatient (CLI) | payer OTHER ==
--- NOTE | 2022-09-30 12:47 | USB ---
Reason for Exam: Follow-up at short interval from prior study. Patient History: Menarche at age 12. Patient has no children. Postmenopausal. Breast cancer, left, age 61. Patient used Hormonal Contraceptives for 8 years. 05/27/2021, Lumpectomy on the Left side. Malignant Core Biopsy. 04/02/2021, Malignant Core Biopsy on the left side. 2021, Radiation Therapy on the left side. Maternal aunt had breast cancer. Technique: Method: Targeted. Prior Study Comparison: 04/02/2021 Left Diagnostic Mammogram, [facility]. 05/27/2021 Left Diagnostic Mammogram, [facility]. 04/03/2022 Left US breast limited LT, [facility]. 04/03/2022 Bilateral MG 3D diag mammo w/cad CALLIE, [facility]. Findings: The lower outer quadrant of the left breast, the axilla of the left breast and the retroareolar of the left breast were scanned. There is a 3.4 x 4.8 x 2.2 debris-filled hypoechoic area within the left breast 2:00 position 8 cm from the nipple. Findings could be compatible with a seroma. This is smaller than the comparison of 04/03/2022. No suspicious ultrasound findings. Overall Assessment: Probably benign, BI-RAD 3 Management: Diagnostic Mammogram of the right breast in 6 months. A clinical breast exam by your physician is recommended on an annual basis and results should be correlated with mammographic findings. This exam should not preclude additional follow-up of suspicious palpable abnormalities. Results were given to the patient verbally at the time of exam. Electronically signed and approved by: Clayton Qiuspe D.O. Radiologis
== END | disposition home or self-care (01) ==
LOC: RADUSWWP 12:06
PROVIDERS: ATTEND Surgery
DX: Z85.3 Personal history of malignant neoplasm of breast (principal); Z78.0 Asymptomatic menopausal state; Z80.3 Family history of malignant neoplasm of breast

== ENCOUNTER → 2023-04-08 | Outpatient (CLI) | payer OTHER ==
--- NOTE | 2023-04-08 14:52 | P.PN ---
Subjective Progress Note Date: 04/08/23 Principal diagnosis: left breast [id number]-G1 low grade DCIS + posterior margin; [id number] left breast [id number]+[id number]-G1 low grade DCIS + posterior margin Susan is a 63 year old white female status post lumpectomy and SNB on 05-27-21. Her posterior margin was focally + for DCIS, however the dissection was to the chest wall. She had radiation therapy. She is taking Letrazole. She developed a seroma on the left side which was aspirated several times. This was most recently aspirated on 04-13-22. She is not complaining of any new lumps masses or nodules of concern in either breast. She is not complaining of any fluid accumulation that is of concern to her at this time. Bilateral mammogram on 04-03-22; ultrasound of the left breast recommended. Ultrasound left breast 04-03-22 BIRAD 3 7.2 cm oval lesion at the area of treatment. She is not complaining of any new lumps masses or nodules of concern in either breast. ultrasound of the left breast on 09-30-22 revealed a 3.4 x 4.8 cm hypoechoic area most likely compatible with a seroma. This was smaller compared to prior ultrasound on [id number]. This was felt to be probably benign BIRADS 3. Mammogram bilaterally was recommended in 6 months. She finished radiation therapy in August 2021. She is taking Femora. She stopped the effoxer and is having less hot flashes on the veozah. Note from medical oncology 03-05-23 reviewed stop effexor, start veozah; continue femora Bilateral mammogram and left breast ultrasound performed [id number]. This was felt to be probably benign BIRADS 3 diagnostic mammogram of the left breast and diagnostic ultrasound of the left breast in 6 months recommended, repeat right breast mammogram in 1 year She is not complaining of any new lumps masses or nodules of concern in either breast. Plan of marked asymmetry between the right and left breasts. The left breast is smaller than the right secondary to surgery for cancer and radiation treatment. It is difficult to find clothes to fit correctly. Caffeine: One cup per day Nicotine: SMOKING approximately 3 cigarettes/day, used to smoke 1-1/2 packs per day for 30 years; stopped smoking 5 weeks ago Chocolate: Occasional Family history: Sister: Esophageal cancer Maternal aunt: Breast cancer Hormonal history: Menarche: 11 G-tube P0 Ab2 Menopause: 49 Surgical history: Lumpectomy and sentinel node biopsy left breast Medical history: Anxiety/depression Hypothyroid High cholesterol Social history: Smoking one and a half packs per day for 30 years but stopped 4 months ago Alcohol: Negative Drugs: Marijuana daily for anxiety Review of systems: Constitutional: Negative HEENT: Negative Breasts: As per HPI Cardiovascular: Negative Breast Lamar: Former smoker GI: Negative : Negative Musculoskeletal: Myalgias Integument: Negative Neurologic: Negative Psychiatric: Reports anxiety and depression at times Endocrine: Hypothyroid Hematologic: Negative Objective - Vital Signs Vital signs: Intake & Output 04/07/23 04/08/23 04/08/23 18:59 06:59 18:59 Weight 71.668 kg - Constitutional General appearance: Present: cooperative - EENT Eyes: Present: EOMI ENT: Present: hearing grossly normal - Neck Neck: Present: normal ROM - Respiratory Respiratory: bilateral: CTA - Cardiovascular Rhythm: regular Heart sounds: normal: S1, S2 - Integumentary Integumentary: Present: normal turgor - Musculoskeletal Musculoskeletal: Present: gait normal - Psychiatric Psychiatric: Present: A&O x's 3, appropriate affect, intact judgment & insight - Additional findings Additional findings: XL sports bra Inspection: Right breast grade 2/3 ptosis, left breast smaller than right breast related to post treatment changes Palpation: Right breast: Multi positional exam fibrocystic changes no dominant masses or nodules of concern Right axilla: No adenopathy of concern Left breast: Multi-positional exam post operative and postradiation changes no dominant masses or nodules of concern; infection under her right breast Left axilla: No adenopathy of concern Assessment and Plan Assessment: Impression: left breast [id number]+Her2-G1 low grade DCIS + posterior margin; patient completed radiation therapy and is presently on Femara No evidence of recurrent disease Bilateral mammogram and left breast ultrasound in [id number], recommendation repeat left breast mammogram and ultrasound in 6 months Asymmetry of the breast related to treatment for cancer Right breast reduction mammoplasty Patient presently on Femara, recently stopped Effexor and is starting veozah Plan: Bilateral mammogram in 1 year, left breast mammogram and ultrasound to repeat in 6 months Right breast reduction mammoplasty will follow up in the new year to get this scheduled Continue to follow with medical and radiation oncology Continue Femara Patient to follow up sooner any questions or concerns Continue to follow with medical and radiation oncology CC: Dr. Momin
== END ==
LOC: WWCWWP 13:03
PROVIDERS: ATTEND Surgery
DX: D05.12 Intraductal carcinoma in situ of left breast (principal); E03.9 Hypothyroidism, unspecified; F32.A Depression, unspecified; F41.9 Anxiety disorder, unspecified; E78.00 Pure hypercholesterolemia, unspecified; F17.210 Nicotine dependence, cigarettes, uncomplicated; F12.90 Cannabis use, unspecified, uncomplicated; N64.89 Other specified disorders of breast; Z80.3 Family history of malignant neoplasm of breast; Z92.3 Personal history of irradiation; Z71.0 Person encountering health services to consult on behalf of another person; Z79.890 Hormone replacement therapy

== ENCOUNTER → 2023-04-08 | Outpatient (CLI) | payer OTHER ==
--- NOTE | 2023-04-08 13:47 | MM ---
Reason for Exam: Hx of breast cancer, conservation therapy. Last screening mammogram was performed 12 month(s) ago. Patient History: Menarche at age 12. Patient has no children. Postmenopausal. Breast cancer, left, age 61. Patient used Hormonal Contraceptives for 8 years. 05/27/2021, Lumpectomy on the Left side. Malignant Core Biopsy. 04/02/2021, Malignant Core Biopsy on the left side. 2021, Radiation Therapy on the left side. Maternal aunt had breast cancer. Prior Study Comparison: 04/02/2021 Left Diagnostic Mammogram, [facility]. 05/27/2021 Left Diagnostic Mammogram, [facility]. 04/03/2022 Bilateral MG 3D diag mammo w/cad CALLIE, [facility]. Tissue Density: There are scattered fibroglandular densities. Findings: Analyzed By CAD. Postsurgical and posttreatment changes left breast. The patient's previous large left upper outer quadrant seroma at the surgical site has considerably decreased in size. Benign bilateral vascular and oil cystic calcifications. Overall Assessment: Incomplete: need additional imaging evaluation, BI-RAD 0 Management: Diagnostic Breast Ultrasound of the left breast. As ordered. Electronically signed and approved by: Clarence Tineo M.D. Radiologist
--- NOTE | 2023-04-08 14:26 | USB ---
Reason for Exam: Follow-up at short interval from prior study. Patient History: Menarche at age 12. Patient has no children. Postmenopausal. Breast cancer, left, age 61. Patient used Hormonal Contraceptives for 8 years. 05/27/2021, Lumpectomy on the Left side. Malignant Core Biopsy. 04/02/2021, Malignant Core Biopsy on the left side. 2021, Radiation Therapy on the left side. Maternal aunt had breast cancer. Technique: Method: Targeted. Prior Study Comparison: 04/02/2021 Left Diagnostic Mammogram, [facility]. 05/27/2021 Left Diagnostic Mammogram, [facility]. 04/03/2022 Bilateral MG 3D diag mammo w/cad CALLIE, [facility]. 09/30/2022 Left US breast limited , [facility]. Findings: The upper outer quadrant of the left breast, the axilla of the left breast and the retroareolar of the left breast were scanned. Targeted ultrasound left breast upper outer quadrant 12:00 to 3:00 including the subareolar region and axilla. Collapsing seroma cavity is demonstrated at the 2:00 position, 8 cm from the nipple, considerably smaller from previous 4.8 cm. Now measuring 3.0 cm. No other solid or cystic lesion. Overall Assessment: Probably benign, BI-RAD 3 Management: Diagnostic Mammogram of the left breast in 6 months. Diagnostic Breast Ultrasound of the left breast in 6 months. A clinical breast exam by your physician is recommended on an annual basis and results should be correlated with mammographic findings. This exam should not preclude additional follow-up of suspicious palpable abnormalities. Results were given to the patient verbally at the time of exam. Electronically signed and approved by: Clarence Tineo M.D. Radiologist
== END | disposition home or self-care (01) ==
LOC: RADMAMWWP 13:00
PROVIDERS: ATTEND Surgery
DX: R92.323 Mammographic fibroglandular density, bilateral breasts (principal); Z85.3 Personal history of malignant neoplasm of breast; Z78.0 Asymptomatic menopausal state; Z80.3 Family history of malignant neoplasm of breast
CPT/HCPCS: 77066; 76642; G0279; 77062

== ENCOUNTER → 2023-08-16 | Outpatient (CLI) | payer OTHER ==
--- NOTE | 2023-08-16 17:42 | BD ---
EXAMINATION TYPE: Axial Bone Density DATE OF EXAM: 08/16/2023 CLINICAL HISTORY: 63 years old Female. ICD-10 CODE: M85.9 DISORDER OF BONE DENSITY AND STRUCTURE, UN SP Height: 59.5 Weight: 156 FRAX RISK QUESTIONS: Family History (Parent hip fracture): yes History of Fracture in Adulthood: no Secondary Osteoporosis: no Current Tobacco Use: yes RISK FACTORS HISTORY OF: Surgery to Spine/Hip(right/left)/Wrist (right/left): no MEDICATIONS: Thyroid Medications: yes Which medication: Synthroid How Lon+ years Osteoporosis Medications: no EXAM MEASUREMENTS: Bone mineral densitometry was performed using the [employer] System. Bone mineral density as measured about the Lumbar spine is: ----- L1-L4(G/cm2): 1.027 T Score Values are as follows: ----- L1: -2.0 ----- L2: -2.9 ----- L3: -1.6 ----- L4: 0.7 ----- L1-L4: -1.3 Z Score Values are as follows: ----- L1: -0.6 ----- L2: -1.5 ----- L3: -0.2 ----- L4: 2.0 ----- L1-L4: 0.1 Bone mineral density has: Increased 8.3% since study of: 08/14/2021 Bone mineral density about the R hip (g/cm2): 0.739 Bone mineral density about the L hip (g/cm2): 0.705 T Score values are as follows: -----R Neck: -2.5 -----L Neck: -2.8 -----R Total: -2.1 -----L Total: -2.4 Z Score values are as follows: -----R Neck: -1.2 -----L Neck: -1.5 -----R Total: -1.1 -----L Total: -1.4 Bone mineral density has: Decreased -4.7% since study of: 08/14/2021 FRAX%s: The graph provided illustrates a 15.7% chance for a major osteoporotic fx and a 5.9% chance f or the hips probability for fx in 10 years time. IMPRESSION: Osteoporosis (T Score less than -2.5). There is increased fracture risk and therapy is usually indicated based on age. Re-Screen 1-2 years. NOTE: T-SCORE=SD OF THE YOUNG ADULT MEAN.
== END | disposition home or self-care (01) ==
LOC: RADBDWWP 09:30
PROVIDERS: ATTEND Internal Medicine Hematology & Oncology
DX: M81.0 Age-related osteoporosis without current pathological fracture (principal); M85.89 Other specified disorders of bone density and structure, multiple sites; C50.412 Malignant neoplasm of upper-outer quadrant of left female breast; Z71.3 Dietary counseling and surveillance
CPT/HCPCS: 77080

== ENCOUNTER → 2023-10-12 | Outpatient (CLI) | payer OTHER ==
--- NOTE | 2023-10-12 14:06 | MM ---
Reason for Exam: Follow-up at short interval from prior study. Last screening mammogram was performed 6 month(s) ago. Patient History: Menarche at age 12. Patient has no children. Postmenopausal. Breast cancer, left, age 61. Patient used Hormonal Contraceptives for 8 years. 05/27/2021, Lumpectomy on the Left side. Malignant Core Biopsy. 04/02/2021, Malignant Core Biopsy on the left side. 2021, Radiation Therapy on the left side. Maternal aunt had breast cancer. Prior Study Comparison: 05/27/2021 Left Diagnostic Mammogram, [facility]. 04/03/2022 Bilateral MG 3D diag mammo w/cad CALLIE, [facility]. 04/08/2023 Bilateral MG 3D diag mammo w/cad CALLIE, [facility]. Tissue Density: Left: There are scattered areas of fibroglandular density. Findings: Analyzed By CAD. Postsurgical and posttreatment changes left breast. Benign secretory calcifications redemonstrated. The density at the lumpectomy site posterior upper outer quadrant continues to become less pronounced, likely continued involution of postoperative seroma/postoperative change. Overall Assessment: Incomplete: need additional imaging evaluation, BI-RAD 0 Management: Diagnostic Breast Ultrasound of the left breast. Electronically signed and approved by: Clarence Tineo M.D. Radiologist
--- NOTE | 2023-10-12 14:24 | USB ---
Reason for Exam: Follow-up at short interval from prior study. Patient History: Menarche at age 12. Patient has no children. Postmenopausal. Breast cancer, left, age 61. Patient used Hormonal Contraceptives for 8 years. 05/27/2021, Lumpectomy on the Left side. Malignant Core Biopsy. 04/02/2021, Malignant Core Biopsy on the left side. 2021, Radiation Therapy on the left side. Maternal aunt had breast cancer. Technique: Method: Targeted. Doppler: Color. Patient Position: Supine. Prior Study Comparison: 05/27/2021 Left Diagnostic Mammogram, [facility]. 04/03/2022 Bilateral MG 3D diag mammo w/cad CALLIE, [facility]. 04/08/2023 Bilateral MG 3D diag mammo w/cad CALLIE, [facility]. 04/08/2023 Left US breast limited LT, [facility]. Findings: The area of palpable concern of the left breast, the axilla of the left breast and the retroareolar of the left breast were scanned. Targeted ultrasound upper outer quadrant 2:00 position of the site of previous abnormality. There is now a heterogeneous cycle isoechoic mass measuring 3.2 x 2.1 x 1.8 cm. The previous cystic component has diminished. Minimal internal vascularity is suggested. Possible clumped up fat necrosis given the lack of a well-defined , identifiable mass on mammogram. Tissue sampling recommended to confirm a benign etiology. Additional scanning of the subareolar region and axilla shows no abnormally. Overall Assessment: Suspicious, BI-RAD 4 Management: Ultrasound Core Biopsy of the left breast. Results were given to the patient verbally at the time of exam. Electronically signed and approved by: Clarence Tineo M.D. Radiologist
== END | disposition home or self-care (01) ==
LOC: RADMAMWWP 13:42
PROVIDERS: ATTEND Radiology Radiation Oncology
DX: C50.412 Malignant neoplasm of upper-outer quadrant of left female breast (principal); R92.322 Mammographic fibroglandular density, left breast; Z92.3 Personal history of irradiation; Z17.0 Estrogen receptor positive status [ER+]; Z78.0 Asymptomatic menopausal state; Z80.3 Family history of malignant neoplasm of breast
CPT/HCPCS: 77065; 76642; G0279; 77061

== ENCOUNTER → 2023-10-27 | Day surgery (SDC) | payer OTHER ==
--- NOTE | 2023-11-02 14:08 | MM ---
Reason for Exam: Post Procedure Mammogram. Last screening mammogram was performed 7 month(s) ago. Patient History: Menarche at age 12. Patient has no children. Postmenopausal. Breast cancer, left, age 61. Patient used Hormonal Contraceptives for 8 years. 05/27/2021, Lumpectomy on the Left side. Malignant Core Biopsy. 04/02/2021, Malignant Core Biopsy on the left side. 2021, Radiation Therapy on the left side. Maternal aunt had breast cancer. Prior Study Comparison: 04/03/2022 Bilateral MG 3D diag mammo w/cad CALLIE, [facility]. 04/08/2023 Bilateral MG 3D diag mammo w/cad CALLIE, [facility]. 10/12/2023 Left MG 3D diag mammo w/cad LT, [facility]. Tissue Density: Left: There are scattered areas of fibroglandular density. Pathology Description: Location: 2 o'clock. 0.5 mL aspirated The procedure of ultrasound guided core biopsy was explained to the patient. Benefits, alternatives, and risks were discussed. An informed consent was then obtained. A timeout was performed. The patient was placed in supine positioning for imaging and for the procedure. The overlying skin was prepped and draped in usual sterile fashion. Lidocaine was used as anesthetic into the skin and subcutaneous tissue up to area of concern in the left breast. A small skin hedy was made with surgical scalpel. Under ultrasound guidance, a 12-gauge vacuum assisted biopsy gun device was used to obtain 5 core samples. A biopsy clip was left in lesion. Hydromark coil core marker was placed. With a history of hematoma attempt to aspirate was performed. 18-gauge needle was advanced into the lesion. Small amount of bloody fluid was obtained. However, no collapse of the structure was evident. Small sample obtained was transferred to pathology for additional workup The patient tolerated the procedure well without any immediate complication. The patient was kept in the radiology department for short stay after the procedure and then discharged home in stable condition. Postprocedure mammogram: The patient was transferred to mammography for physician ordered post procedure mammogram for clip placement verification. A clip is identified appears to be within the prior lumpectomy site region. Impression: Successful ultrasound guided core biopsy of area of concern in the left breast, full pathology results to follow. Recommendations: 1. Recommendations are pending pathology results. Pathology Results: Results pending. Pathology Description: Location: 2 o'clock. Marker Left Behind. Needle Type: Mammotome Cores: 5 Skin Nicks: 1 Gauge: 13 The procedure of ultrasound guided core biopsy was explained to the patient. Benefits, alternatives, and risks were discussed. An informed consent was then obtained. A timeout was performed. The patient was placed in supine positioning for imaging and for the procedure. The overlying skin was prepped and draped in usual sterile fashion. Lidocaine was used as anesthetic into the skin and subcutaneous tissue up to area of concern in the left breast. A small skin hedy was made with surgical scalpel. Under ultrasound guidance, a 12-gauge vacuum assisted biopsy gun device was used to obtain 5 core samples. A biopsy clip was left in lesion. Hydromark coil core marker was placed. With a history of hematoma attempt to aspirate was performed. 18-gauge needle was advanced into the lesion. Small amount of bloody fluid was obtained. However, no collapse of the structure was evident. Small sample obtained was transferred to pathology for additional workup The patient tolerated the procedure well without any immediate complication. The patient was kept in the radiology department for short stay after the procedure and then discharged home in stable condition. Postprocedure mammogram: The patient was transferred to mammography for physician ordered post procedure mammogram for clip placement verification. A clip is identified appears to be within the prior lumpectomy site region. Impression: Successful ultrasound guided core biopsy of area of concern in the left breast, full pathology results to follow. Recommendations: 1. Recommendations are pending pathology results. Pathology Results: Result: Benign, Fat necrosis. Pathology and radiology were reviewed. Findings are concordant. LEFT BREAST, 2:00 POSITION, ULTRASOUND GUIDED CORE BIOPSY: Postoperative changes with nodular fat necrosis and fibrous scar. Negative for malignancy. LEFT BREAST, TWO O'CLOCK ASPIRATION: Limited specimen with mostly peripheral blood elements (see note). Notes If there is clinical suspicion for malignancy, a core tissue biopsy can be obtained. Overall Assessment: Benign Assessment: MG diagnostic mammo LT wo CAD. - Left: Benign, BI-RAD 2. Management: Diagnostic Mammogram of the left breast in 6 months. Electronically signed and approved by: Clayton Quispe D.O. Radiologis
== END ==
LOC: RADUSWWP 12:45
PROVIDERS: ATTEND Surgery
DX: N64.1 Fat necrosis of breast (principal); R92.8 Other abnormal and inconclusive findings on diagnostic imaging of breast; Z78.0 Asymptomatic menopausal state; Z85.3 Personal history of malignant neoplasm of breast; Z92.0 Personal history of contraception
CPT/HCPCS: 88305; 88173; 77065; 76942; 19000; 19083; A4648

== ENCOUNTER → 2023-11-04 | Outpatient (CLI) | payer OTHER ==
[2023-11-04 14:50] VITALS: BP 150/85; PULSE 75; RESP 17; TEMP 98.3
--- NOTE | 2023-11-04 14:51 | P.PN ---
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 Her posterior margin was focally + for DCIS, however the dissection was to the chest wall. She had radiation therapy. She is taking Letrazole. She developed a seroma on the left side which was aspirated several times. This was most recently aspirated on 04-13-22. She is not complaining of any new lumps masses or nodules of concern in either breast. She is not complaining of any fluid accumulation that is of concern to her at this time. Bilateral mammogram on 04-03-22; ultrasound of the left breast recommended. Ultrasound left breast 04-03-22 BIRAD 3 7.2 cm oval lesion at the area of treatment. She is not complaining of any new lumps masses or nodules of concern in either breast. ultrasound of the left breast on 09-30-22 revealed a 3.4 x 4.8 cm hypoechoic area most likely compatible with a seroma. This was smaller compared to prior ultrasound on [id number]. This was felt to be probably benign BIRADS 3. Mammogram bilaterally was recommended in 6 months. She finished radiation therapy on 08-05-21; note radiation oncology reviewed from 09-03-23 She is taking Femora. She stopped the effoxer, she uses a clonidine patch now for hot flashes Bilateral mammogram and left breast ultrasound performed [id number]. This was felt to be probably benign BIRADS 3 diagnostic mammogram of the left breast and diagnostic ultrasound of the left breast in 6 months recommended, repeat right breast mammogram in 1 year Repeat left breast mammogram and ultrasound performed 09-30-2022. This led to a left breast ultrasound-guided core biopsy and a left breast aspiration on 10-27-2023. The core biopsy revealed postoperative changes with nodular fat necrosis and fibrous scar. The aspiration was limited with mostly peripheral blood elements. The feeling by the radiologist was that this was benign concordant and she should have a repeat left breast mammogram and ultrasound in 6 months. She is not complaining of any new lumps masses or nodules of concern in either breast. Plan of marked asymmetry between the right and left breasts. The left breast is smaller than the right secondary to surgery for cancer and radiation treatment. It is difficult to find clothes to fit correctly. Caffeine: One cup per day Nicotine: SMOKING approximately 3 cigarettes/day, used to smoke 1-1/2 packs per day for 30 years; stopped smoking 5 weeks ago Chocolate: Occasional Family history: Sister: Esophageal cancer Maternal aunt: Breast cancer Hormonal history: Menarche: 11 G-tube P0 Ab2 Menopause: 49 Surgical history: Lumpectomy and sentinel node biopsy left breast Medical history: Anxiety/depression Hypothyroid High cholesterol Social history: Smoking one and a half packs per day for 30 years but stopped 4 months ago Alcohol: Negative Drugs: Marijuana daily for anxiety Review of systems: Constitutional: Negative HEENT: Negative Breasts: As per HPI Cardiovascular: Negative Breast Lamar: Former smoker GI: Negative : Negative Musculoskeletal: Myalgias Integument: Negative Neurologic: Negative Psychiatric: Reports anxiety and depression at times Endocrine: Hypothyroid Hematologic: Negative Objective - Constitutional General appearance: Present: cooperative - EENT Eyes: Present: EOMI ENT: Present: hearing grossly normal - Neck Neck: Present: normal ROM - Respiratory Respiratory: bilateral: CTA - Cardiovascular Heart sounds: normal: S1, S2 - Gastrointestinal General gastrointestinal: Present: soft - Integumentary Integumentary: Present: normal turgor - Musculoskeletal Musculoskeletal: Present: gait normal - Psychiatric Psychiatric: Present: A&O x's 3, appropriate affect, intact judgment & insight - Additional findings Additional findings: XL sports bra Inspection: Right breast grade 2/3 ptosis, left breast smaller than right breast related to post treatment changes Palpation: Right breast: Multi positional exam fibrocystic changes no dominant masses or nodules of concern Right axilla: No adenopathy of concern Left breast: Multi-positional exam post operative and postradiation changes no dominant masses or nodules of concern; infection under her right breast Left axilla: No adenopathy of concern Assessment and Plan Assessment: Impression: left breast [id number]+MO+Her2-G1 low grade DCIS + posterior margin; patient completed radiation therapy and is presently on Femara No evidence of recurrent disease Bilateral mammogram and left breast ultrasound in [id number], recommendation repeat left breast mammogram and ultrasound in 6 months done and biopsy benign specific Asymmetry of the breast related to treatment for cancer Right breast reduction mammoplasty Patient presently on Femara, patient on clonidine Plan: Bilateral mammogram in 1 year, left breast mammogram and ultrasound to repeat in 6 months Continue to follow with medical and radiation oncology Continue Femara Continue to follow with medical and radiation oncology Right breast reduction mammoplasty We have discussed her seeing a plastic surgeon and she has declined. CC: Dr. Momin
== END ==
LOC: WWCWWP 14:19
PROVIDERS: ATTEND Surgery
DX: N64.89 Other specified disorders of breast (principal); Z85.3 Personal history of malignant neoplasm of breast; Z80.3 Family history of malignant neoplasm of breast; Z87.891 Personal history of nicotine dependence; Z92.3 Personal history of irradiation

== ENCOUNTER 2023-12-07 06:30 | Day surgery (SDC) | payer OTHER ==
[2023-12-07] MEDS ORDERED: ONDANSETRON 4 MG/2 ML VIAL ONE ×2 (07:30→12:13)
[2023-12-07] MEDS ORDERED: LIDOCAINE 4% LTA KIT (4 ML) TOPICAL ONE (07:30)
[2023-12-07] MEDS ORDERED: fentaNYL (PF) 50 MCG/ML 2 ML AMP ONE (07:30)
[2023-12-07] MEDS ORDERED: LIDOCAINE 1% INJ 10MG/ML (20 ML MDV) ONE (07:30)
[2023-12-07] MEDS ORDERED: MIDAZOLAM 2 MG/2 ML VIAL ONE (07:30)
[2023-12-07] MEDS ORDERED: PROPOFOL 10 MG/ML 20 ML VIAL IV ONE (07:30)
[2023-12-07] MEDS ORDERED: HYDROmorphone (PF) 1 MG/ML ONE (07:30)
[2023-12-07] MEDS ORDERED: DEXAMETHASONE SOD PHOSPHATE 4 MG/ML 1 ML VIAL ONE (07:30)
[2023-12-07] MEDS ORDERED: SUCCINYLCHOLINE CHLORIDE 200 MG/10 ML VIAL IV ONE (07:30)
[2023-12-07] MEDS ORDERED: ACETAMINOPHEN TAB 500 MG TAB ONE (07:32)
[2023-12-07] MEDS ORDERED: HEPARIN SODIUM,PORCINE 5,000 UNIT/ML 1 ML VIAL ONE (07:33)
[2023-12-07] MEDS ORDERED: LIDOCAINE 1% INJ 10MG/ML (10 ML MDV) ONE (07:48)
[2023-12-07] MEDS ORDERED: LACTATED RINGERS 1,000 ML BAG ONE (07:48)
[2023-12-07] MEDS ORDERED: ceFAZolin 10 GM VIAL IVPB ONE (07:48)
[2023-12-07] MEDS ORDERED: SODIUM CHLORIDE 0.9% 50 ML BAG IV ONE (07:48)
[2023-12-07] MEDS ORDERED: KETOROLAC 15 MG/ML 1 ML VIAL ONE (12:38)
--- NOTE | 2024-01-13 14:44 | OP ---
OPERATIVE REPORT DATE OF SERVICE : Fax number for the [facility], . PREPROCEDURE DIAGNOSIS: Asymmetry of the breast secondary to the cancer surgery on the left side. POSTPROCEDURE DIAGNOSIS: Asymmetry of the breast secondary to the cancer surgery on the left side. PROCEDURE PERFORMED: Right breast reduction mammoplasty. ESTIMATED BLOOD LOSS: 35 mL. FLUIDS: 800 mL. DESCRIPTION OF PROCEDURE: The patient was taken to the operative suite and following induction of anesthesia, both breasts were prepped and draped in a sterile fashion. Prior to going to the operating room, the right breast was marked for a reduction mammoplasty incision. The patient was given the option of seeing a plastic surgeon prior to the mammoplasty and declined. The pedicle for the inferior mammoplasty was deepithelialized. The tissue was then removed from the U-shaped region which had been marked medially, laterally, and superiorly around the nipple areolar complex. Prior to removing this tissue or doing deepithelialization, a #42 Cookie cutter was used to outline the areolar complex. The base of the pedicle was approximately 8 cm. After the tissue had been removed, superior, medial, and lateral flaps were developed for the mammoplasty. The wound was well irrigated. Hemostasis was obtained using the harmonic scalpel and the electrocautery device. The inferior pedicle was tacked to the chest wall using 3-0 Vicryl suture. The flaps were brought together and secured using 3-0 Vicryl suture. The subcutaneous tissue was then closed for all of the flaps using a running 3-0 Vicryl suture. This was followed by a 4-0 Monocryl subcuticular suture. Prior to that a #42 Cookie cutter was used to determine the area where the nipple areolar complex would be located. This skin and subcutaneous tissue were resected. The nipple areolar complex was brought out to this site and the area was matured using deep 3-0 Vicryl as well as a running subcuticular 4-0 Monocryl suture. After all the sutures had been placed, surgical glue was applied. Prior to placing the sutures, two #10 MONICA drains were placed and secured using a nylon suture. At the termination of the procedure, 10 mL of 1% lidocaine was injected into the incision site. The patient tolerated the procedure in stable condition. All instrument and sponge counts were correct at the end of the procedure. Please note Surgicel in powder form was placed in the operative sites prior to the closure. MMODL / IJN: [id number] /
== END 2023-12-07 13:56 ==
LOC: OR 06:30
PROVIDERS: ATTEND Surgery
DX: N65.1 Disproportion of reconstructed breast (principal); E03.9 Hypothyroidism, unspecified; I10 Essential (primary) hypertension; E78.2 Mixed hyperlipidemia; E55.9 Vitamin D deficiency, unspecified; F41.1 Generalized anxiety disorder; F41.0 Panic disorder [episodic paroxysmal anxiety]; J43.1 Panlobular emphysema; F32.A Depression, unspecified; Z85.3 Personal history of malignant neoplasm of breast; Z79.890 Hormone replacement therapy; Z79.899 Other long term (current) drug therapy; Z92.3 Personal history of irradiation; Z80.3 Family history of malignant neoplasm of breast; Z87.891 Personal history of nicotine dependence

== ENCOUNTER → 2023-12-15 | Outpatient (CLI) | payer OTHER ==
[2023-12-15 08:54] VITALS: BP 138/79; PULSE 82; RESP 17; TEMP 98.1
--- NOTE | 2023-12-15 09:23 | P.BCPO ---
Progress Note - Text Progress Note Date: 12/15/23 Susan is status post a right breast reduction mammoplasty on 12-07-23 secondary to asymmetry related to prior left breast lumpectomy and radiation therapy for cancer on 05-27-21. Pain well postoperatively. She has minimal drainage from her MONICA drains. Examination: Incision clean and dry MONICA output minimal Plan: Remove both MONICA drains Follow-up in 2 weeks for repeat examination CC: Dr. Momin
== END ==
LOC: WWCWWP 08:39
PROVIDERS: ATTEND Surgery
DX: Z48.817 Encounter for surgical aftercare following surgery on the skin and subcutaneous tissue (principal); N64.89 Other specified disorders of breast; Z85.3 Personal history of malignant neoplasm of breast; Z98.890 Other specified postprocedural states; Z92.3 Personal history of irradiation

== ENCOUNTER → 2023-12-30 | Outpatient (CLI) | payer OTHER ==
[2023-12-30 11:55] VITALS: BP 166/86; PULSE 75; RESP 16; TEMP 98.3
--- NOTE | 2023-12-30 12:11 | P.PN ---
Subjective Progress Note Date: 12/30/23 12/15/23 Susan is status post a right breast reduction mammoplasty on 12-07-23 secondary to asymmetry related to prior left breast lumpectomy and radiation therapy for cancer on 05-27-21. Doing well postoperatively. She hasd minimal drainage from her MONICA drains which were removed on 12-15-23. Examination: Incision clean and dry minimal break down at the trifurcation of the incision Plan: Bilateral mammogram in March 2024 with appointment at that time brijesh Ozuna reinforce incision at the trifurcation follow up in one weeks Inferior aspect of the incision was prepped using alcohol. 1% lidocaine were used used to anesthetize the area of concern. 3 sutures were placed to reinforce this. The patient tolerated the procedure in stable condition. CC: Dr. Momin Objective - Vital Signs Vital signs: Vital Signs Temp 98.3 F 12/30/23 11:53 Pulse 75 12/30/23 11:53 Resp 16 12/30/23 11:53 BP 166/86 12/30/23 11:53 Pulse Ox 97 12/30/23 11:53 FiO2 Intake & Output 12/29/23 12/30/23 12/30/23 18:59 06:59 18:59 Weight 70.76 kg
== END ==
LOC: WWCWWP 11:18
PROVIDERS: ATTEND Surgery
DX: Z04.89 Encounter for examination and observation for other specified reasons (principal); Z92.3 Personal history of irradiation; Z98.890 Other specified postprocedural states

== ENCOUNTER → 2024-01-07 | Outpatient (CLI) | payer OTHER ==
[2024-01-07 09:40] VITALS: BP 174/71; PULSE 61; RESP 17; TEMP 99.1
--- NOTE | 2024-01-07 09:48 | P.PN ---
Subjective Progress Note Date: 01/07/24 12/30/23 12/15/23 Susan is status post a right breast reduction mammoplasty on 12-07-23 secondary to asymmetry related to prior left breast lumpectomy and radiation therapy for cancer on 05-27-21. Doing well postoperatively. She hasd minimal drainage from her MONICA drains which were removed on 12-15-23. Examination: Incision clean and dry minimal break down at the trifurcation of the incision was reinforced with 3 sutures, this is well-healed on today's exam Plan: Bilateral mammogram in March 2024 with appointment at that time continue Femara reinforce incision at the trifurcation sutures ready for removal of these are removed today follow up in one weeks On her visit of 12-15-23 the Inferior aspect of the incision was prepped using alcohol. 1% lidocaine were used used to anesthetize the area of concern. 3 sutures were placed to reinforce this. The patient tolerated the procedure in stable condition. CC: Dr. Momin Objective - Vital Signs Vital signs: Vital Signs Temp 99.1 F 01/07/24 09:38 Pulse 61 01/07/24 09:38 Resp 17 01/07/24 09:38 BP 174/71 01/07/24 09:38 Pulse Ox 97 01/07/24 09:38 FiO2 Intake & Output 01/06/24 01/07/24 01/07/24 18:59 06:59 18:59 Weight 70.76 kg
== END ==
LOC: WWCWWP 09:18
PROVIDERS: ATTEND Surgery
DX: N64.89 Other specified disorders of breast (principal); Z92.3 Personal history of irradiation; Z85.3 Personal history of malignant neoplasm of breast; Z98.890 Other specified postprocedural states

== ENCOUNTER → 2024-04-20 | Outpatient (CLI) | payer MEDICARE ==
--- NOTE | 2024-04-21 10:40 | MM ---
Reason for Exam: Follow-up at short interval from prior study. Last mammogram was performed 1 year(s) and 1 month(s) ago. Patient History: Menarche at age 12. Patient has no children. Postmenopausal. Breast cancer, left, age 61. Patient used Hormonal Contraceptives for 8 years. Reduction on the Right side. 10/27/2023, US breast aspiration single LT on the Left side. 10/27/2023, Benign US biopsy breast VAD LT on the left side. 05/27/2021, Lumpectomy on the Left side. Malignant Core Biopsy. 04/02/2021, Malignant Core Biopsy on the left side. 2021, Radiation Therapy on the left side. Maternal aunt had breast cancer. Prior Study Comparison: 04/02/2021 Left Diagnostic Mammogram, [facility]. 05/27/2021 Left Diagnostic Mammogram, [facility]. 04/03/2022 Left US breast limited LT, [facility]. 04/03/2022 Bilateral MG 3D diag mammo w/cad CALLIE, [facility]. 09/30/2022 Left US breast limited LT, [facility]. 04/08/2023 Bilateral MG 3D diag mammo w/cad [facility], [facility]. 04/08/2023 Left US breast limited LT, [facility]. 10/12/2023 Left MG 3D diag mammo w/cad LT, [facility]. 10/12/2023 Left US breast LT, [facility]. 10/27/2023 Left MG diagnostic mammo LT wo CAD., [facility]. Tissue Density: There are scattered areas of fibroglandular density. Findings: Analyzed By CAD. Pattern is asymmetric with a band of increased density post reduction within the right breast. Postsurgical lumpectomy changes are within the left breast. Benign calcifications are present bilaterally. No suspicious groups of microcalcifications, spiculated or lobular masses, architectural distortion or other secondary signs of malignancy are mammographically apparent. Overall Assessment: Benign, BI-RAD 2 Management: Diagnostic Mammogram of both breasts in 1 year. A negative mammogram report should not preclude additional follow up of suspicious palpable abnormalities. Patient should continue monthly self breast exam. A clinical breast exam by your physician is recommended on an annual basis and results should be correlated with mammographic findings. Note on Ora scores and lifetime risk: 1. A Ora score greater than 3% is considered moderate risk. If this is the case, consider specialist referral to assess eligibility for a risk reducing agent. 2. If overall lifetime risk for the development of breast cancer is 20% or higher, the patient may qualify for future screening with alternating mammogram and breast MRI. [facility], , 04/21/2024 10:37 AM. Electronically signed and approved by: Clayton Quispe D.O. Radiologis
== END | disposition home or self-care (01) ==
LOC: RADMAMWWP 14:39
PROVIDERS: ATTEND Surgery
DX: Z85.3 Personal history of malignant neoplasm of breast (principal); Z78.0 Asymptomatic menopausal state; Z80.3 Family history of malignant neoplasm of breast; R92.323 Mammographic fibroglandular density, bilateral breasts; Z98.890 Other specified postprocedural states
CPT/HCPCS: 77062; 77066

== ENCOUNTER → 2024-04-27 | Outpatient (CLI) | payer MEDICARE, OTHER ==
[2024-04-27 13:41] VITALS: BP 165/85; PULSE 71; RESP 17; TEMP 97.7
--- NOTE | 2024-04-27 14:03 | P.PN ---
Subjective Progress Note Date: 04/27/24 04-27-24 Principal diagnosis: left breast [id number]+IL+Her2-G1 low grade DCIS + posterior margin; 04-02-21202004-08-23 left breast [id number]+IL+Her2-G1 low grade DCIS + posterior margin Susan is a 63 year old white female status post lumpectomy and SNB on 05-27-21. Her posterior margin was focally + for DCIS, however the dissection was to the chest wall. She had radiation therapy. She is taking Letrazole. She developed a seroma on the left side which was aspirated several times. This was most recently aspirated on 04-13-22. She is not complaining of any new lumps masses or nodules of concern in either breast. She is not complaining of any fluid accumulation that is of concern to her at this time. Bilateral mammogram on 04-03-22; ultrasound of the left breast recommended. Ultrasound left breast 04-03-22 BIRAD 3 7.2 cm oval lesion at the area of t reatment. She is not complaining of any new lumps masses or nodules of concern in either breast. ultrasound of the left breast on 09-30-22 revealed a 3.4 x 4.8 cm hypoechoic area most likely compatible with a seroma. This was smaller compared to prior ultrasound on [id number]. This was felt to be probably benign BIRADS 3. Mammogram bilaterally was recommended in 6 months. She finished radiation therapy on 08-05-21; note radiation oncology reviewed from 09-03-23 She is taking Femora. She stopped the effoxer, she uses a clonidine patch now for hot flashes 11-04-23 Bilateral mammogram and left breast ultrasound performed [id number]. This was felt to be probably benign BIRADS 3 diagnostic mammogram of the left breast and diagnostic ultrasound of the left breast in 6 months recommended, repeat right breast mammogram in 1 year Repeat left breast mammogram and ultrasound performed 09-30-2022. This led to a left breast ultrasound-guided core biopsy and a left breast aspiration on 10-27-2023. The core biopsy revealed postoperative changes with nodular fat necrosis and fibrous scar. The aspiration was limited with mostly peripheral blood elements. The feeling by the radiologist was that this was benign concordant and she should have a repeat left breast mammogram and ultrasound in 6 months. She is not complaining of any new lumps masses or nodules of concern in either breast. Plan of marked asymmetry between the right and left breasts. The left breast is smaller than the right secondary to surgery for cancer and radiation treatment. It is difficult to find clothes to fit correctly. 12-18-24 Patient status post left breast lumpectomy and SNB on 05-27-21. Her posterior margin was focally + for DCIS, however the dissection was to the chest wall. She had radiation therapy. She is taking Letrazole. She developed a seroma on the left side which was aspirated several times. She states she was doing well until she had her bilateral mammogram in 04 20 24. After that she has had pain and swelling in the left breast greatest in the upper outer quadrant area. Right breast reduction mammplasty on 12-07-23. patient had a bilateral mammogram on 04-20-24 BIRAD 2. inflamation under the left breast/ probable fungal infection Caffeine: One cup per day Nicotine: SMOKING approximately 3 cigarettes/day, used to smoke 1-1/2 packs per day for 30 years; stopped smoking 5 weeks ago Chocolate: Occasional Family history: Sister: Esophageal cancer Maternal aunt: Breast cancer Hormonal history: Menarche: 11 G-tube P0 Ab2 Menopause: 49 Surgical history: Lumpectomy and sentinel node biopsy left breast Medical history: Anxiety/depression Hypothyroid High cholesterol Social history: Smoking one and a half packs per day for 30 years but stopped 4 months ago Alcohol: Negative Drugs: Marijuana daily for anxiety Review of systems: Constitutional: Negative HEENT: Negative Breasts: As per HPI Cardiovascular: Negative Breast Lamar: Former smoker GI: Negative : Negative Musculoskeletal: Myalgias Integument: Negative Neurologic: Negative Psychiatric: Reports anxiety and depression at times Endocrine: Hypothyroid Hematologic: Negative Objective - Vital Signs Vital signs: Vital Signs Temp 97.7 F 04/27/24 13:37 Pulse 71 04/27/24 13:37 Resp 17 04/27/24 13:37 BP 165/85 04/27/24 13:37 Pulse Ox 97 04/27/24 13:37 FiO2 Intake & Output 04/26/24 04/27/24 04/27/24 18:59 06:59 18:59 Weight 72.575 kg - Constitutional General appearance: Present: cooperative - EENT Eyes: Present: EOMI ENT: Present: hearing grossly normal - Neck Neck: Present: normal ROM - Respiratory Respiratory: bilateral: CTA - Cardiovascular Rhythm: regular Heart sounds: normal: S1, S2 - Integumentary Integumentary: Present: normal turgor - Musculoskeletal Musculoskeletal: Present: gait normal - Psychiatric Psychiatric: Present: A&O x's 3, appropriate affect, intact judgment & insight - Additional findings Additional findings: sports bra Inspection: Right breast grade 2/3 ptosis, left breast smaller than right breast related to post treatment changes Palpation: Right breast: Multi positional exam fibrocystic changes no dominant masses or nodules of concern, status post surgical changes Right axilla: No adenopathy of concern Left breast: Multi-positional exam post operative and postradiation changes no dominant masses or nodules of concern, fullness in the upper outer quadrant may be a seroma Left axilla: No adenopathy of concern Fungal Infection under the left breast Assessment and Plan Assessment: Impression: left breast [id number]+IL+Her2-G1 low grade DCIS + posterior margin; patient completed radiation therapy and is presently on Femara No evidence of recurrent disease Bilateral mammogram 04-20-24 BIRAD 2 Right breast reduction mammoplasty Patient presently on Femara, patient stoped clonidine complaining of hot-flashes fungal infection unfder left breast Plan: Bilateral mammogram in 1 year nystatin ultrasound left breast r/o seroma Continue to follow with medical and radiation oncology Continue Femara The patient is having hot flashes and will discuss this with medical oncology CC: Dr. Momin
== END ==
LOC: WWCWWP 13:12
PROVIDERS: ATTEND Surgery
DX: C50.912 Malignant neoplasm of unspecified site of left female breast (principal); B36.8 Other specified superficial mycoses; R23.2 Flushing; R92.8 Other abnormal and inconclusive findings on diagnostic imaging of breast; Z41.1 Encounter for cosmetic surgery; Z80.3 Family history of malignant neoplasm of breast; Z17.21 Progesterone receptor positive status; Z17.0 Estrogen receptor positive status [ER+]; Z92.3 Personal history of irradiation

== ENCOUNTER → 2024-05-12 | Outpatient (CLI) | payer MEDICARE, OTHER ==
--- NOTE | 2024-05-12 13:36 | USB ---
Reason for Exam: Clinical finding. Patient History: Menarche at age 12. Patient has no children. Postmenopausal. Breast cancer, left, age 61. Patient used Hormonal Contraceptives for 8 years. Reduction on the Right side. 10/27/2023, US breast aspiration single LT on the Left side. 10/27/2023, Benign US biopsy breast VAD LT on the left side. 05/27/2021, Lumpectomy on the Left side. Malignant Core Biopsy. 04/02/2021, Malignant Core Biopsy on the left side. 2021, Radiation Therapy on the left side. Maternal aunt had breast cancer. Technique: Method: Targeted. Prior Study Comparison: 10/12/2023 Left MG 3D diag mammo w/cad LT, [facility]. 10/27/2023 Left MG diagnostic mammo LT wo CAD., [facility]. 04/20/2024 Bilateral MG 3D diag mammo w/cad CALLIE, [facility]. Findings: The upper outer quadrant of the left breast, the axilla of the left breast and the retroareolar of the left breast were scanned. Targeted ultrasound upper outer quadrant left breast 12:00 to 3:00 including scanning of the subareolar region and axilla. There is redemonstrated heterogeneous echogenic area measuring 2.4 x 1.2 x 1.6 cm corresponding to the previously biopsied site of fat necrosis. Microclip related to prior biopsy. Previously measured 3.4 x 2.1 x 1.6 cm. No suspicious interval changes. No other solid or cystic lesion or axillary lymphadenopathy. Overall Assessment: Benign, BI-RAD 2 Management: Screening Mammogram of both breasts in 1 year. A clinical breast exam by your physician is recommended on an annual basis and results should be correlated with mammographic findings. This exam should not preclude additional follow-up of suspicious palpable abnormalities. Results were given to the patient verbally at the time of exam. [facility], , 05/12/2024 1:33 PM. Electronically signed and approved by: Clarence Tineo M.D. Radiologist
== END | disposition home or self-care (01) ==
LOC: RADUSWWP 12:57
PROVIDERS: ATTEND Surgery
DX: N63.20 Unspecified lump in the left breast, unspecified quadrant (principal); Z85.3 Personal history of malignant neoplasm of breast; Z78.0 Asymptomatic menopausal state; Z80.3 Family history of malignant neoplasm of breast

== ENCOUNTER → 2024-08-01 | Outpatient (CLI) | payer MEDICARE, OTHER ==
--- NOTE | 2024-08-01 13:26 | MM ---
Reason for Exam: Clinical finding. Last screening mammogram was performed 3 month(s) ago. Indicated Problems: Lump or thickening of the right side for 2 Week(s). Patient History: Menarche at age 12. Patient has no children. Postmenopausal. Breast cancer, left, age 61. Patient used Hormonal Contraceptives for 8 years. Reduction on the Right side. 10/27/2023, US breast aspiration single LT on the Left side. 10/27/2023, Benign US biopsy breast VAD LT on the left side. 05/27/2021, Lumpectomy on the Left side. Malignant Core Biopsy. 04/02/2021, Malignant Core Biopsy on the left side. 2021, Radiation Therapy on the left side. Maternal aunt had breast cancer. Prior Study Comparison: 10/12/2023 Left MG 3D diag mammo w/cad LT, [facility]. 10/27/2023 Left MG diagnostic mammo LT wo CAD., [facility]. 04/20/2024 Bilateral MG 3D diag mammo w/cad CALLIE, [facility]. Tissue Density: Right: The breasts are heterogeneously dense, which may obscure small masses. Findings: Analyzed By CAD. A few benign-appearing oil cysts in the right breast are redemonstrated. No new suspicious mass or worrisome cluster of microcalcification. Overall Assessment: Incomplete: need additional imaging evaluation, BI-RAD 0 Management: Diagnostic Breast Ultrasound of the right breast. Thyroid ultrasound right breast due to new palpable abnormality. Results were given to the patient verbally at the time of exam. Patient should continue monthly self-breast exams. A clinical breast exam by your physician is recommended on an annual basis. This exam should not preclude additional follow-up of suspicious palpable abnormalities. Note on Ora scores and lifetime risk: 1. A Ora score greater than 3% is considered moderate risk. If this is the case, consider specialist referral to assess eligibility for a risk reducing agent. 2. If overall lifetime risk for the development of breast cancer is 20% or higher, the patient may qualify for future screening with alternating mammogram and breast MRI. [facility], , 08/01/2024 1:23 PM. Electronically signed and approved by: Osmar Hayward M.D.
--- NOTE | 2024-08-01 13:51 | USB ---
Reason for Exam: Clinical finding. Patient History: Menarche at age 12. Patient has no children. Postmenopausal. Breast cancer, left, age 61. Patient used Hormonal Contraceptives for 8 years. Reduction on the Right side. 10/27/2023, US breast aspiration single LT on the Left side. 10/27/2023, Benign US biopsy breast VAD LT on the left side. 05/27/2021, Lumpectomy on the Left side. Malignant Core Biopsy. 04/02/2021, Malignant Core Biopsy on the left side. 2021, Radiation Therapy on the left side. Maternal aunt had breast cancer. Technique: Method: Targeted. Prior Study Comparison: 10/12/2023 Left MG 3D diag mammo w/cad LT, [facility]. 10/27/2023 Left MG diagnostic mammo LT wo CAD., [facility]. 04/20/2024 Bilateral MG 3D diag mammo w/cad CALLIE, [facility]. Findings: The axilla of the right breast and the retroareolar of the right breast were scanned. Targeted ultrasound shows just below the dermal surface a 11 x 8 mm predominantly anechoic avascular oval lesion with no posterior features. On mammogram appears to be a new oil cyst at this level of palpable abnormality corresponding to the ultrasound findingTargeted ultrasound shows just below the dermal surface a 11 x 8 mm predominantly anechoic avascular oval lesion with no posterior features. On mammogram appears to be a new oil cyst at this level of palpable abnormality corresponding to the ultrasound finding. A benign-appearing lymph node in the right axilla is seen. Overall Assessment: Benign, BI-RAD 2 Management: Screening Mammogram of both breasts in 9 months. Return to routine follow-up. A clinical breast exam by your physician is recommended on an annual basis and results should be correlated with mammographic findings. This exam should not preclude additional follow-up of suspicious palpable abnormalities. Results were given to the patient verbally at the time of exam. [facility], , 08/01/2024 1:48 PM. Electronically signed and approved by: Osmar Hayward M.D.
== END | disposition home or self-care (01) ==
LOC: RADMAMWWP 13:01
PROVIDERS: ATTEND Family Medicine
DX: R92.331 Mammographic heterogeneous density, right breast (principal); N63.15 Unspecified lump in the right breast, overlapping quadrants; Z78.0 Asymptomatic menopausal state; Z85.3 Personal history of malignant neoplasm of breast; Z92.0 Personal history of contraception; Z80.3 Family history of malignant neoplasm of breast
CPT/HCPCS: 77061; 77065